=== PATIENT | male | born 1945 | race Caucasian/White ===

== ENCOUNTER 2018-09-22 21:45 | Emergency (ER) | payer MEDICARE, OTHER ==
[~2018-09-22] VITALS: Ht 182.9 cm; Wt 108.9 kg
--- OUTSIDE RECORDS SUMMARY | 2018-09-22 21:50 | XMS REPORT ---
Author Author VISHNU JACOBSON Organization [facility] Address [address] [place] [address] Care Team Providers Care Maintenance Mechanic Telephone Name Role Phone VISHNU JACOBSON Unavailable PROBLEMS Type Condition ICD9-CM Code UPV14-NI Code Onset Dates Condition Status SNOMED Code Problem Benign prostatic hyperplasia, presence of lower urinary tract symptoms unspecified, unspecified morphology N40.0 Active 336055289 Problem HTN (hypertension) I10 Active 42238982 Problem Diabetes mellitus E11.9 Active 65507526 Problem Pure hypercholesterolemia E78.00 Active 104077660 ALLERGIES No Information ENCOUNTERS Encounter Location Date Diagnosis [place] [id number] [address] 4783 Mar, [facility] [address] [place] [id number] [place] [address] 25184- 6427 Jan, [facility] [address] 84141- 3788 Sep, Diabetes mellitus E11.9 [facility] [id number] [place] [address] 67859- 7515 Jul, Diabetes mellitus E11.9 ; HTN (hypertension) I10 ; Pure hypercholesterolemia E78.00 and Benign prostatic hyperplasia, presence of lower urinary tract symptoms unspecified, unspecified morphology N40.0 [facility] [id number] [place] [address] 41261- 5089 Apr, Diabetes mellitus E11.9 ; HTN (hypertension) I10 ; Pure hypercholesterolemia E78.00 and Benign prostatic hyperplasia, presence of lower urinary tract symptoms unspecified, unspecified morphology N40.0 [facility] [id number] [place] [address] 54915- 4481 Apr, Diabetes mellitus E11.9 [facility] [address] [address] 28 Jan, 2017 Medicare welcome exam Z00.00 ; Medicare annual wellness visit, initial Z00.00 ; Medicare annual wellness visit, subsequent Z00.00 ; Diabetes mellitus E11.9 ; HTN (hypertension) I10 and Pure hypercholesterolemia E78.00 [place] [id number] [place] [address] 09464- 5503 Dec, Hyperlipemia E78.5 and Diabetes mellitus E11.9 [place] [address] [id number] [place] [address] 54300- 4691 Nov, Diabetes mellitus E11.9 ; Hypercholesterolemia E78.0 ; Benign prostatic hyperplasia, presence of lower urinary tract symptoms unspecified, unspecified morphology N40.0 and HTN (hypertension) I10 [place] [address] [id number] [place] [address] 37324- 8763 Nov, Hypercholesterolemia E78.0 ; Benign prostatic hyperplasia, presence of lower urinary tract symptoms unspecified, unspecified morphology N40.0 ; HTN (hypertension) I10 and Diabetes mellitus E11.9 [facility] [place] [address] [address] [id number] [place] [address] 02192 -6608 Aug, Body aches R52 and Viral illness B34.9 [place] [address] [place] [address] 13561- 6529 Jul, Diabetes mellitus E11.9 ; Hypercholesterolemia E78.0 ; Benign prostatic hyperplasia, presence of lower urinary tract symptoms unspecified, unspecified morphology N40.0 and HTN (hypertension) I10 [place] [address] [id number] [place] [address] 89077- 5036 Mar, Diabetes mellitus E11.9 ; Hypercholesterolemia E78.0 ; HTN ( hypertension) I10 and Benign prostatic hyperplasia, presence of lower urinary tract symptoms unspecified, unspecified morphology N40.0 [place] [address] [place] [address] 42385- 7482 Jan, [facility] [id number] [place] [address] 32768 -3390 Dec, Sinusitis J32.9 [place] [address] [place] [address] 57449- 2447 14 Dec, 2015 [place] [address] [address] [id number] [place] [address] 54016- 7122 14 Dec, 2015 [place] [address] [address] [id number] [place] [address] 16228- 1074 Dec, Diabetes mellitus E11.9 [place] [address] [address] [id number] [place] [address] 24360- 2074 Oct, [place] [address] [address] [id number] [place] [address] 28900- 3966 Oct, Diabetes mellitus E11.9 ; Hypercholesterolemia E78.0 and HTN (hypertension) I10 [place] [address] [address] [id number] [place] [address] 85565- 0257 Oct, [place] [id number] [place] [address] 04241- 0038 Sep, Hyperlipemia E78.5 [place] [address] [address] [id number] [place] [address] 23973- 3179 Sep, Elevated blood sugar R73.09 and Diabetes mellitus E11.9 [place] [address] [address] 1761 Sep, Physical exam Z00.00 IMMUNIZATIONS No Known Immunizations SOCIAL HISTORY Never Assessed REASON FOR VISIT Medication refill request PLAN OF CARE VITAL SIGNS MEDICATIONS Medication Instructions Dosage Frequency Start Date End Date Duration Status Lisinopril 5 mg Orally Once a day 1 tablet 24h 30 Active Pravastatin Sodium 20 mg Orally Once a day 1 tablet 24h 30 Active Flomax 0.4 MG Orally Once a day 1 tablet 24h 30 Active Pioglitazone HCl 45 MG Orally Once a day 1 tablet 24h Oct, 30 days Active RESULTS No Results PROCEDURES No Known procedures INSTRUCTIONS MEDICATIONS ADMINISTERED No Known Medications MEDICAL (GENERAL) HISTORY Type Description Date Medical History Diabetes type II Medical History hyperlipidemia Medical History htn Surgical History appendectomy Surgical History left knee repair Surgical History left knee replacement Hospitalization History surgeries
--- OUTSIDE RECORDS SUMMARY | 2018-09-22 21:50 | XMS REPORT ---
Author Author NICOLAS WILKINS Organization [facility] Address [address] [place] [address] Care Team Providers Care Consultant In Ergonomics And Safety Name Role Phone NICOLAS WILKINS Unavailable PROBLEMS Type Condition ICD9-CM Code PRB58-HC Code Onset Dates Condition Status SNOMED Code Problem Benign prostatic hyperplasia, presence of lower urinary tract symptoms unspecified, unspecified morphology N40.0 Active 289818923 Problem HTN (hypertension) I10 Active 98185478 Problem Diabetes mellitus E11.9 Active 89549036 Problem Pure hypercholesterolemia E78.00 Active 730545809 ALLERGIES Substance Reaction Event Type Date Status Claire Unknown Drug Allergy Mar, Active ENCOUNTERS Encounter Location Date Diagnosis [place] [address] [place] [id number] [place] [address] 84801- 4202 Mar, Diabetes mellitus E11.9 [place] [address] [place] [id number] [place] [address] 19768- 2131 Jan, [place] [address] [place] [id number] [place] [address] 78914- 8084 Sep, Diabetes mellitus E11.9 [place] [address] [place] [id number] [place] [address] 31549- 2522 Jul, Diabetes mellitus E11.9 ; HTN (hypertension) I10 ; Pure hypercholesterolemia E78.00 and Benign prostatic hyperplasia, presence of lower urinary tract symptoms unspecified, unspecified morphology N40.0 [facility] [address] [id number] [place] [address] 92451- 5655 Apr, Diabetes mellitus E11.9 ; HTN (hypertension) I10 ; Pure hypercholesterolemia E78.00 and Benign prostatic hyperplasia, presence of lower urinary tract symptoms unspecified, unspecified morphology N40.0 [place] [address] [place] [id number] [place] [address] 95032- 2952 Apr, Diabetes mellitus E11.9 [facility] [address] [place] [address] 69881- 8288 Jan, Medicare welcome exam Z00.00 ; Medicare annual wellness visit, initial Z00.00 ; Medicare annual wellness visit, subsequent Z00.00 ; Diabetes mellitus E11.9 ; HTN (hypertension) I10 and Pure hypercholesterolemia E78.00 [place] [address] [place] [id number] [place] [address] 37766- 9133 Dec, Hyperlipemia E78.5 and Diabetes mellitus E11.9 [place] [address] [place] [id number] [place] [address] 35727- 4832 Nov, Diabetes mellitus E11.9 ; Hypercholesterolemia E78.0 ; Benign prostatic hyperplasia, presence of lower urinary tract symptoms unspecified, unspecified morphology N40.0 and HTN (hypertension) I10 [place] [address] [place] [id number] [place] [address] 93681- 5038 Nov, Hypercholesterolemia E78.0 ; Benign prostatic hyperplasia, presence of lower urinary tract symptoms unspecified, unspecified morphology N40.0 ; HTN (hypertension) I10 and Diabetes mellitus E11.9 [facility] [address] [id number] [place] [address] 27344 -6190 Aug, Body aches R52 and Viral illness B34.9 [place] [address] [place] [address] 90137- 0876 Jul, Diabetes mellitus E11.9 ; Hypercholesterolemia E78.0 ; Benign prostatic hyperplasia, presence of lower urinary tract symptoms unspecified, unspecified morphology N40.0 and HTN (hypertension) I10 [place] [address] [place] [id number] [place] [address] 28389- 8731 Mar, Diabetes mellitus E11.9 ; Hypercholesterolemia E78.0 ; HTN ( hypertension) I10 and Benign prostatic hyperplasia, presence of lower urinary tract symptoms unspecified, unspecified morphology N40.0 [facility] [address] [place] [address] 59009- 2357 Jan, [facility] [address], [place] [address] 23 Dec, 2015 Sinusitis J32.9 [facility] [id number] [place] [address] 45518- 5843 14 Dec, 2015 [facility] [address] [id number] [place] [address] 20343- 9792 14 Dec, 2015 [facility] [address] [place] [id number] [place] [address] 63356- 3806 03 Dec, 2015 Diabetes mellitus E11.9 [place] [address] [place] [id number] [place] [address] 21137- 0216 15 Oct, 2015 [place] [address] [place] [address] [id number] [place] [address] 97625- 6197 14 Oct, 2015 Diabetes mellitus E11.9 ; Hypercholesterolemia E78.0 and HTN (hypertension) I10 [place] [address] [place] [id number] [place] [address] 08386- 4913 13 Oct, 2015 [place] [address] [place] [id number] [place] [address] 64835- 8781 15 Sep, 2015 Hyperlipemia E78.5 [place] [address] [place] [address] [place] [address] 54242- 6341 14 Sep, 2015 Elevated blood sugar R73.09 and Diabetes mellitus E11.9 [place] [address] [place] [id number] [place] [address] 15390- 3936 07 Sep, 2015 Physical exam Z00.00 IMMUNIZATIONS No Known Immunizations SOCIAL HISTORY Never Assessed REASON FOR VISIT Diabetes WB-MA PLAN OF CARE Activity Details Pending Test A1C (IN HOUSE) VITAL SIGNS Height 72 in 2018-03-25 Weight 245 lbs 2018-03-25 Temperature 97.9 degrees Fahrenheit 2018-03-25 Heart Rate 82 bpm 2018-03-25 Respiratory Rate 20 2018-03-25 BMI 33.22 kg/m2 2018-03-25 Blood pressure systolic 128 mmHg 2018-03-25 Blood pressure diastolic 72 mmHg 2018-03-25 MEDICATIONS Medication Instructions Dosage Frequency Start Date End Date Duration Status Pravastatin Sodium 20 mg Orally Once a day 1 tablet 24h 30 Active Blood Glucose Monitor System w/Device as directed Sep, Active Lisinopril 5 mg Orally Once a day 1 tablet 24h 30 Active Pioglitazone HCl 45 MG Orally Once a day 1 tablet 24h Oct, 30 days Active Flomax 0.4 MG Orally Once a day 1 tablet 24h 30 Active RESULTS No Results PROCEDURES Procedure Date Ordered Result Body Site GLYCATED HEMOGLOBIN TEST March 25, 2018 MICROALBUMIN, SEMIQUANT March 25, 2018 [facility], 2018 [facility] VISIT ESTABLISHED PATIENT March 25, 2018 ZACHARY MOREJON* March 25, 2018 INSTRUCTIONS MEDICATIONS ADMINISTERED No Known Medications MEDICAL (GENERAL) HISTORY Type Description Date Medical History Diabetes type II Medical History hyperlipidemia Medical History htn Surgical History appendectomy Surgical History left knee repair Surgical History left knee replacement Hospitalization History surgeries
--- OUTSIDE RECORDS SUMMARY | 2018-09-22 21:50 | XMS REPORT ---
Author Author NICOLAS WILKINS Organization [facility] Address [address] [place] [address] Care Team Providers Care Automatic Vulcanizing Operator Name Role Phone NICOLAS WILKINS Unavailable PROBLEMS Type Condition ICD9-CM Code KKY72-ZU Code Onset Dates Condition Status SNOMED Code Problem Benign prostatic hyperplasia, presence of lower urinary tract symptoms unspecified, unspecified morphology N40.0 Active 490010033 Problem HTN (hypertension) I10 Active 92391689 Problem Diabetes mellitus E11.9 Active 18556360 Problem Pure hypercholesterolemia E78.00 Active 481352325 ALLERGIES No Information ENCOUNTERS Encounter Location Date Diagnosis [place] [id number] 15757- 7016 Sep, [facility] [address] 39614- 1758 Sep, Diabetes mellitus E11.9 [place] [address] 50932- 5459 Mar, Diabetes mellitus E11.9 [facility] [address] [place] [id number] [place] [address] 07755- 0401 Jan, [facility] [address] 82858- 7098 Sep, Diabetes mellitus E11.9 [facility] [address] [place] [id number] [place] [address] 14280- 5643 Jul, Diabetes mellitus E11.9 ; HTN (hypertension) I10 ; Pure hypercholesterolemia E78.00 and Benign prostatic hyperplasia, presence of lower urinary tract symptoms unspecified, unspecified morphology N40.0 [facility] [address] [place] [id number] [place] [address] 29967- 3064 Apr, Diabetes mellitus E11.9 ; HTN (hypertension) I10 ; Pure hypercholesterolemia E78.00 and Benign prostatic hyperplasia, presence of lower urinary tract symptoms unspecified, unspecified morphology N40.0 [facility] [address] [place] [address] 97677- 9905 Apr, Diabetes mellitus E11.9 [facility] [address] [place] [id number] [place] [address] 38181- 1593 Jan, Medicare welcome exam Z00.00 ; Medicare annual wellness visit, initial Z00.00 ; Medicare annual wellness visit, subsequent Z00.00 ; Diabetes mellitus E11.9 ; HTN (hypertension) I10 and Pure hypercholesterolemia E78.00 [place] [address] [place] [id number] [place] [address] 30092- 3199 Dec, Hyperlipemia E78.5 and Diabetes mellitus E11.9 [place] [address] [place] [id number] [place] [address] 59693- 0540 Nov, Diabetes mellitus E11.9 ; Hypercholesterolemia E78.0 ; Benign prostatic hyperplasia, presence of lower urinary tract symptoms unspecified, unspecified morphology N40.0 and HTN (hypertension) I10 [place] [address] [place] [id number] [place] [address] 38087- 4047 Nov, Hypercholesterolemia E78.0 ; Benign prostatic hyperplasia, presence of lower urinary tract symptoms unspecified, unspecified morphology N40.0 ; HTN (hypertension) I10 and Diabetes mellitus E11.9 [facility] IN [facility] [address] [place] [address] 69675 -0481 Aug, Body aches R52 and Viral illness B34.9 [facility] [address] [place] [address] 50241- 6611 Jul, Diabetes mellitus E11.9 ; Hypercholesterolemia E78.0 ; Benign prostatic hyperplasia, presence of lower urinary tract symptoms unspecified, unspecified morphology N40.0 and HTN (hypertension) I10 [facility] [address] [place] [address] 09264- 6847 Mar, Diabetes mellitus E11.9 ; Hypercholesterolemia E78.0 ; HTN ( hypertension) I10 and Benign prostatic hyperplasia, presence of lower urinary tract symptoms unspecified, unspecified morphology N40.0 [facility] [address], [place] [address]- 7475 Jan, [facility] [address], [place] [address] Dec, Sinusitis J32.9 [facility] [address] [place] [id number] [place] [address] 68603- 8317 Dec, [facility] [address] [place] [id number] [place] [address] 56985- 6719 Dec, [place] [address] [place] [id number] [place] [address] 92548- 0226 Dec, Diabetes mellitus E11.9 [place] [address] [place] [id number] [place] [address] 81374- 0907 Oct, [facility] [address] [place] [id number] [place] [address] 52060- 7879 Oct, Diabetes mellitus E11.9 ; Hypercholesterolemia E78.0 and HTN (hypertension) I10 [place] [address] [place] [address] 79411- 8750 Oct, [place] [address] [place] [address] 54791- 4780 Sep, Hyperlipemia E78.5 [place] [address] [place] [id number] [place] [address] 84129- 6181 Sep, Elevated blood sugar R73.09 and Diabetes mellitus E11.9 [place] [address], [place] [address]- 5789 Sep, Physical exam Z00.00 IMMUNIZATIONS No Known Immunizations SOCIAL HISTORY Never Assessed REASON FOR VISIT Medication refill request PLAN OF CARE VITAL SIGNS MEDICATIONS Medication Instructions Dosage Frequency Start Date End Date Duration Status Pravastatin Sodium 20 MG Orally Once a day 1 tablet 24h 30 days Active Lisinopril 5 MG Orally Once a day 1 tablet 24h 30 days Active Pioglitazone HCl 45 MG Orally Once a day 1 tablet 24h Oct, 30 days Active Flomax 0.4 MG Orally Once a day 1 tablet 24h 30 days Active RESULTS No Results PROCEDURES No Known procedures INSTRUCTIONS MEDICATIONS ADMINISTERED No Known Medications MEDICAL (GENERAL) HISTORY Type Description Date Medical History Diabetes type II Medical History hyperlipidemia Medical History htn Surgical History appendectomy Surgical History left knee repair Surgical History left knee replacement Hospitalization History surgeries
--- OUTSIDE RECORDS SUMMARY | 2018-09-22 21:50 | XMS REPORT ---
Author Author EDY CAI Organization [facility] [place] Address [address] [place] [address] Phone Unavailable Care Team Providers Care Professor Of Chemistry Name Role Phone EDY CAI Unavailable Unavailable PROBLEMS Type Condition ICD9-CM Code DVJ84-XR Code Onset Dates Condition Status SNOMED Code Problem Benign prostatic hyperplasia, presence of lower urinary tract symptoms unspecified, unspecified morphology N40.0 Active 112191864 Problem HTN (hypertension) I10 Active 02609228 Problem Diabetes mellitus E11.9 Active 19145611 Problem Pure hypercholesterolemia E78.00 Active 145740957 ALLERGIES No Information ENCOUNTERS Encounter Location Date Diagnosis [facility] [place] [address] 42177- 7766 Mar, Diabetes mellitus E11.9 [facility] [place] [address] [place] [id number] [place] [address] 72612- 4964 Jan, [facility] [place] [address] 34302- 7451 Sep, Diabetes mellitus E11.9 [facility] [place] [address] [place] [id number] [place] [address] 60311- 0290 Jul, Diabetes mellitus E11.9 ; HTN (hypertension) I10 ; Pure hypercholesterolemia E78.00 and Benign prostatic hyperplasia, presence of lower urinary tract symptoms unspecified, unspecified morphology N40.0 [facility] [place] [address] [place] [id number] [place] [address] 18556- 6189 Apr, Diabetes mellitus E11.9 ; HTN (hypertension) I10 ; Pure hypercholesterolemia E78.00 and Benign prostatic hyperplasia, presence of lower urinary tract symptoms unspecified, unspecified morphology N40.0 [facility] [place] [address] [place] [id number] [place] [address] 95014- 2206 Apr, Diabetes mellitus E11.9 [facility] [place] [address], [place] [address]- 0671 28 Jan, 2017 Medicare welcome exam Z00.00 ; Medicare annual wellness visit, initial Z00.00 ; Medicare annual wellness visit, subsequent Z00.00 ; Diabetes mellitus E11.9 ; HTN (hypertension) I10 and Pure hypercholesterolemia E78.00 [place] [address] [place] [address] [id number] [place] [address] 87884- 5706 Dec, Hyperlipemia E78.5 and Diabetes mellitus E11.9 [place] [address] [id number] [place] [address] 59707- 0630 Nov, Diabetes mellitus E11.9 ; Hypercholesterolemia E78.0 ; Benign prostatic hyperplasia, presence of lower urinary tract symptoms unspecified, unspecified morphology N40.0 and HTN (hypertension) I10 [place] [address] [place] [id number] [place] [address] 91524- 2877 Nov, Hypercholesterolemia E78.0 ; Benign prostatic hyperplasia, presence of lower urinary tract symptoms unspecified, unspecified morphology N40.0 ; HTN (hypertension) I10 and Diabetes mellitus E11.9 [facility] [place] [address] [place] [id number] [place] [address] 46100 -6007 Aug, Body aches R52 and Viral illness B34.9 [place] [address] [place] [address] 90932- 5830 Jul, Diabetes mellitus E11.9 ; Hypercholesterolemia E78.0 ; Benign prostatic hyperplasia, presence of lower urinary tract symptoms unspecified, unspecified morphology N40.0 and HTN (hypertension) I10 [place] [address] [place] [id number] [place] [address] 61956- 7753 Mar, Diabetes mellitus E11.9 ; Hypercholesterolemia E78.0 ; HTN ( hypertension) I10 and Benign prostatic hyperplasia, presence of lower urinary tract symptoms unspecified, unspecified morphology N40.0 [place] [address] [place] [address] 18440- 4537 Jan, [facility] [address] [id number] [place] [address] 92766 -0225 23 Dec, 2015 Sinusitis J32.9 [facility] [place] [address] [place] [address] 53792- 2570 14 Dec, 2015 [facility] [place] [address] [place] [id number] [place] [address] 03016- 3349 14 Dec, 2015 [facility] [place] [address] [place] [id number] [place] [address] 68461- 9720 03 Dec, 2015 Diabetes mellitus E11.9 [place] [address] [address] [id number] [place] [address] 82556- 6794 Oct, [place] [address] [address] [id number] [place] [address] 78328- 5340 Oct, Diabetes mellitus E11.9 ; Hypercholesterolemia E78.0 and HTN (hypertension) I10 [place] [address] [id number] [place] [address] 37210- 5344 Oct, [place] [address] [place] [id number] [place] [address] 88819- 9153 Sep, Hyperlipemia E78.5 [place] [address] [place] [id number] [place] [address] 78634- 5091 Sep, Elevated blood sugar R73.09 and Diabetes mellitus E11.9 [place] [address], [place] [address]- 9524 07 Sep, 2015 Physical exam Z00.00 IMMUNIZATIONS No Known Immunizations SOCIAL HISTORY Never Assessed REASON FOR VISIT Requests return call PLAN OF CARE VITAL SIGNS MEDICATIONS Unknown Medications RESULTS No Results PROCEDURES No Known procedures INSTRUCTIONS MEDICATIONS ADMINISTERED No Known Medications MEDICAL (GENERAL) HISTORY Type Description Date Medical History Diabetes type II Medical History hyperlipidemia Medical History htn Surgical History appendectomy Surgical History left knee repair Surgical History left knee replacement Hospitalization History surgeries
--- OUTSIDE RECORDS SUMMARY | 2018-09-22 21:50 | XMS REPORT ---
Author Author PETER GONSALVES Organization [facility] Address [address] [place] [address] Care Team Providers Care Office Secretary Name Role Phone PETER GONSALVES Unavailable PROBLEMS Type Condition ICD9-CM Code [id number] Code Onset Dates Condition Status SNOMED Code Problem Benign prostatic hyperplasia, presence of lower urinary tract symptoms unspecified, unspecified morphology N40.0 Active 604125656 Problem HTN (hypertension) I10 Active 73462904 Problem Diabetes mellitus E11.9 Active 80238295 Problem Pure hypercholesterolemia E78.00 Active 922867850 ALLERGIES No Information SOCIAL HISTORY Never Assessed PLAN OF CARE VITAL SIGNS MEDICATIONS No Known Medications RESULTS Name Result Date Reference Range CBC 2016-12-18 WBC 7.3 3.4-10.8 RBC 5.04 4.14-5.80 Hemoglobin 15.3 12.6-17.7 Hematocrit 46.2 37.5-51.0 MCV 92 79-97 MCH 30.4 26.6-33.0 MCHC 33.1 31.5-35.7 RDW 14.0 12.3-15.4 Platelets 237 150-379 Neutrophils 42 Lymphs 44 Monocytes 10 Eos 4 Basos 0 Neutrophils (Absolute) 3.0 1.4-7.0 Lymphs (Absolute) 3.2 0.7-3.1 Monocytes(Absolute) 0.8 0.1-0.9 Eos (Absolute) 0.3 0.0-0.4 Baso (Absolute) 0.0 0.0-0.2 Immature Granulocytes 0 Immature Grans (Abs) 0.0 0.0-0.1 LIPID PANEL 2016-12-18 Cholesterol, Total 188 100-199 Triglycerides 149 0-149 HDL Cholesterol 40 >39 VLDL Cholesterol Pranav 30 5-40 LDL Cholesterol Calc 118 0-99 Comment: CMP 2016-12-18 Glucose, Serum 117 65-99 BUN 13 8-27 Creatinine, Serum 0.70 0.76-1.27 eGFR If NonAfricn Am 94 >59 eGFR If Africn Am 108 >59 BUN/Creatinine Ratio 19 10-22 Sodium, Serum 138 134-144 Potassium, Serum 4.3 3.5-5.2 Chloride, Serum 98 96-106 Carbon Dioxide, Total 25 18-29 Calcium, Serum 9.2 8.6-10.2 Protein, Total, Serum 7.3 6.0-8.5 Albumin, Serum 4.2 3.5-4.8 Globulin, Total 3.1 1.5-4.5 A/G Ratio 1.4 1.1-2.5 Bilirubin, Total 0.6 0.0-1.2 Alkaline Phosphatase, S 69 39-117 AST (SGOT) 15 0-40 ALT (SGPT) 14 0-44 PROCEDURES Procedure Date Ordered Result Body Site LAB NOT BILLED BY [facility] December 18, 2016 VENIPUNCT, ROUTINE* December 18, 2016 IMMUNIZATIONS No Known Immunizations MEDICAL (GENERAL) HISTORY Type Description Date Medical History Diabetes type II Medical History hyperlipidemia Medical History htn Surgical History appendectomy Surgical History left knee repair Surgical History left knee replacement Hospitalization History surgeries
--- OUTSIDE RECORDS SUMMARY | 2018-09-22 21:50 | XMS REPORT ---
Author Author PETER GONSALVES Organization [facility] Address [address] [place] [address] Care Team Providers Care Nurse Licensed Practical Name Role Phone PETER GONSALVES Unavailable PROBLEMS Type Condition ICD9-CM Code [id number] Code Onset Dates Condition Status SNOMED Code Problem Benign prostatic hyperplasia, presence of lower urinary tract symptoms unspecified, unspecified morphology N40.0 Active 376132889 Problem HTN (hypertension) I10 Active 57599744 Problem Diabetes mellitus E11.9 Active 53257966 Problem Pure hypercholesterolemia E78.00 Active 463611117 ALLERGIES Substance Reaction Event Type Date Status Claire Unknown Drug Allergy Nov, Active SOCIAL HISTORY Never Assessed PLAN OF CARE Activity Details Follow Up 3 Months Reason:dm VITAL SIGNS Height 72 in 2016-12-09 Weight 240 lbs 2016-12-09 Temperature 98.0 degrees Fahrenheit 2016-12-09 Heart Rate 78 bpm 2016-12-09 Respiratory Rate 20 2016-12-09 BMI 32.55 kg/m2 2016-12-09 Blood pressure systolic 130 mmHg 2016-12-09 Blood pressure diastolic 80 mmHg 2016-12-09 MEDICATIONS Medication Instructions Dosage Frequency Start Date End Date Duration Status Pioglitazone HCl 45 MG Orally Once a day 1 tablet 24h Oct, 30 days Active Pravastatin Sodium 20 mg Orally Once a day 1 tablet 24h Sep, 30 Active Blood Glucose Monitor System w/Device as directed Sep, Active Lisinopril 5 mg Orally Once a day 1 tablet 24h Oct, 30 Active Flomax 0.4 MG Orally Once a day 1 tablet 24h 30 Active RESULTS Name Result Date Reference Range MICROALBUMIN, URINE (IN HOUSE) 2016-12-09 MICROALBUMIN Normal Lot # [id number] Exp date 11/2017 Clarity clear Color yellow ALB 30mg/l CRE 200mg/dl A:C (IN HOUSE) <30mg/g Control Control Lot # Exp date A1C (IN HOUSE) 2016-12-09 A1C IN HOUSE 6.6 4.3 - 5.6 % Previous A1c 6.8 Lot [id number] Exp date 08/2018 PROCEDURES Procedure Date Ordered Result Body Site GLYCATED HEMOGLOBIN TEST Dec 09, 2016 MICROALBUMIN, SEMIQUANT Dec 09, 2016 [facility] VISIT ESTABLISHED PATIENT Dec 09, 2016 IMMUNIZATIONS No Known Immunizations MEDICAL (GENERAL) HISTORY Type Description Date Medical History Diabetes type II Medical History hyperlipidemia Medical History htn Surgical History appendectomy Surgical History left knee repair Surgical History left knee replacement Hospitalization History surgeries
--- OUTSIDE RECORDS SUMMARY | 2018-09-22 21:51 | XMS REPORT ---
Author Author PETER GONSALVES [facility] eClinicalWorks Address Unknown Phone Unavailable Care Team Providers Care Vector Control Assistant Name Role Phone PETER GONSALVES CP Unavailable Allergies, Adverse Reactions, Alerts Substance Reaction Event Type N.K.D.A. Info Not Available Non Drug Allergy Problems Problem Type Condition Code Onset Dates Condition Status Assessment Elevated blood sugar R73.09 Active Assessment Diabetes mellitus E11.9 Active Problem Diabetes mellitus E11.9 Active Medications Medication Code System Code Instructions Start Date End Date Status Dosage Actos [facility] [address]-04 30 MG Orally Once a day Sep 30, 2015 1 tablet Blood Glucose Monitor System [facility] [address] w/Device dispense per insurance. Pt to test once a day. DX: E11.9 Sep 30, 2015 as directed Procedures Procedure Coding System Code Date [facility] NOBLL Sep 30, 2015 [facility] VISIT ESTABLISHED PATIENT CPT-4 G0467 Sep 30, 2015 GLYCATED HEMOGLOBIN TEST CPT-4 21728 Sep 30, 2015 VENIPUNCT, ROUTINE* CPT-4 71682 Sep 30, 2015 Office Visit, Est Pt., Level 4 CPT-4 06658 Sep 30, 2015 Vital Signs Date/Time: Sep 30, 2015 Temperature 97.6 F Weight 252.4 lbs Height 72 in BMI 34.23 Index Blood Pressure Diastolic 88 mmHg Blood Pressure Systolic 150 mmHg Cardiac Monitoring Heart Rate 88 bpm Results Name Result Date Reference Range Unit Abnormality Flag CBC ----Lymphs 47 61766890 % ----Neutrophils 33 53822493 % ----Baso (Absolute) 0.1 93621109 0.0-0.2 x10E3/uL ----Hemoglobin 16.9 20150930 12.6-17.7 g/dL ----Eos (Absolute) 0.7 92681945 0.0-0.4 x10E3/uL H ----Hematocrit 50.3 20150930 37.5-51.0 % ----Monocytes(Absolute) 0.8 81693275 0.1-0.9 x10E3/uL ----MCV 94 01106117 79-97 fL ----Lymphs (Absolute) 3.6 37221015 0.7-3.1 x10E3/uL H ----MCH 31.6 77775498 26.6-33.0 pg ----Neutrophils (Absolute) 2.5 15329378 1.4-7.0 x10E3/uL ----MCHC 33.6 40378677 31.5-35.7 g/dL ----Immature Granulocytes 0 56141912 % ----Basos 1 69564016 % ----RDW 13.8 89265675 12.3-15.4 % ----Immature Grans (Abs) 0.0 21943215 0.0-0.1 x10E3/uL ----WBC 7.5 45975690 3.4-10.8 x10E3/uL ----Platelets 319 58423559 150-379 x10E3/uL ----Eos 9 62296921 % ----RBC 5.35 62076330 4.14-5.80 x10E6/uL ----Monocytes 10 84641944 % LIPID PANEL ----LDL Cholesterol Calc 147 07398170 0-99 mg/dL H ----VLDL Cholesterol Pranav 74 45754861 5-40 mg/dL H ----Cholesterol, Total 254 14601242 100-199 mg/dL H ----HDL Cholesterol 33 95533877 >39 mg/dL L ----Triglycerides 371 01363146 0-149 mg/dL H A1C (IN HOUSE) ----A1C IN HOUSE 9.3 61549033 4.30 - 5.6 % ----Previous A1c n/a 20150930 ----Lot # [id number] ----Exp date [id number] ROUTINE VENIPUNCTURE CMP ----Potassium, Serum 4.4 20150930 3.5-5.2 mmol/L ----Sodium, Serum 136 20150930 134-144 mmol/L ----BUN/Creatinine Ratio 13 20150930 10-22 ----eGFR If Africn Am 115 20150930 >59 mL/min/1.73 ----eGFR If NonAfricn Am 100 11041179 >59 mL/min/1.73 ----Creatinine, Serum 0.61 20150930 0.76-1.27 mg/dL L ----BUN 8 20150930 8-27 mg/dL ----Glucose, Serum 224 20150930 65-99 mg/dL H ----AST (SGOT) 29 20150930 0-40 IU/L ----Globulin, Total 3.2 22094907 1.5-4.5 g/dL ----ALT (SGPT) 31 20150930 0-44 IU/L ----A/G Ratio 1.3 20150930 1.1-2.5 ----Bilirubin, Total 0.6 20150930 0.0-1.2 mg/dL ----Alkaline Phosphatase, S 83 20150930 39-117 IU/L ----Carbon Dioxide, Total 24 20150930 18-29 mmol/L ----Calcium, Serum 9.2 64501319 8.6-10.2 mg/dL ----Protein, Total, Serum 7.4 70283970 6.0-8.5 g/dL ----Albumin, Serum 4.2 07706694 3.5-4.8 g/dL ----Chloride, Serum 98 20150930 97-108 mmol/L Summary Purpose eClinicalWorks Submission
--- OUTSIDE RECORDS SUMMARY | 2018-09-22 21:51 | XMS REPORT ---
Author PETER [facility] eClinicalWorks Address Unknown Phone Unavailable Care Team Providers Care Blow Torch Burner Name Role Phone PETER GONSALVES CP Unavailable Allergies, Adverse Reactions, Alerts Substance Reaction Event Type Claire Info Not Available Drug Allergy Problems Problem Type Condition Code Onset Dates Condition Status Assessment HTN (hypertension) I10 Active Problem Hypercholesterolemia E78.0 Active Problem HTN (hypertension) I10 Active Problem Benign prostatic hyperplasia, presence of lower urinary tract symptoms unspecified, unspecified morphology N40.0 Active Assessment Hypercholesterolemia E78.0 Active Assessment Benign prostatic hyperplasia, presence of lower urinary tract symptoms unspecified, unspecified morphology N40.0 Active Problem Diabetes mellitus E11.9 Active Assessment Diabetes mellitus E11.9 Active Medications Medication Code System Code Instructions Start Date End Date Status Dosage Blood Glucose Monitor System [facility] [address] w/Device dispense per insurance. Pt to test once a day. DX: E11.9 Sep 30, 2015 as directed Lisinopril [facility] [address]-55 5 mg Orally Once a day Oct 31, 2015 1 tablet Pravastatin Sodium [facility] [address]-15 20 mg Orally Once a day Oct 01, 2015 1 tablet Pioglitazone HCl [facility] [address]-80 45 MG Orally Once a day Oct 31, 2015 1 tablet Flomax [facility] 79345600585 0.4 MG Orally Once a day 1 tablet Procedures Procedure Coding System Code Date Office Visit, Est Pt., Level 4 CPT-4 28501 Aug 13, 2016 [facility] VISIT ESTABLISHED PATIENT CPT-4 G0467 Aug 13, 2016 Vital Signs Date/Time: Aug 13, 2016 Cardiac Monitoring Heart Rate 80 bpm Weight 238.6 lbs Height 72 in BMI 32.36 Index Blood Pressure Diastolic 80 mmHg Blood Pressure Systolic 106 mmHg Results No Known Results Summary Purpose eClinicalWorks Submission
--- OUTSIDE RECORDS SUMMARY | 2018-09-22 21:51 | XMS REPORT ---
Author Author PETER GONSALVES Organization [facility] Address [address] [place] [address] Care Team Providers Care Electrician Station Assistant Name Role Phone PETER GONSALVES Unavailable PROBLEMS Type Condition ICD9-CM Code [id number] Code Onset Dates Condition Status SNOMED Code Problem Benign prostatic hyperplasia, presence of lower urinary tract symptoms unspecified, unspecified morphology N40.0 Active 902172964 Problem HTN (hypertension) I10 Active 01519781 Problem Diabetes mellitus E11.9 Active 80842558 Problem Pure hypercholesterolemia E78.00 Active 849250619 ALLERGIES No Known Allergies SOCIAL HISTORY No smoking Hx information available PLAN OF CARE VITAL SIGNS MEDICATIONS Medication Instructions Dosage Frequency Start Date End Date Duration Status Pravastatin Sodium 20 mg Orally Once a day 1 tablet 24h Sep, 30 Active Flomax 0.4 MG Orally Once a day 1 tablet 24h 30 Active Lisinopril 5 mg Orally Once a day 1 tablet 24h Oct, 30 Active Pioglitazone HCl 45 MG Orally Once a day 1 tablet 24h Oct, 30 days Active RESULTS No Results PROCEDURES No Known procedures IMMUNIZATIONS No Known Immunizations
--- OUTSIDE RECORDS SUMMARY | 2018-09-22 21:51 | XMS REPORT ---
Author PETER [facility] eClinicalWorks Address Unknown Phone Unavailable Care Team Providers Care Administrative Asst Name Role Phone PETER GONSALVES Unavailable Allergies No Known Allergies Problems Problem Type Condition Code Onset Dates Condition Status Problem HTN (hypertension) I10 Active Problem Diabetes mellitus E11.9 Active Problem Hypercholesterolemia E78.0 Active Medications Medication Code System Code Instructions Start Date End Date Status Dosage Pioglitazone HCl [facility] [address]-25 45 MG Orally Once a day Oct 31, 2015 1 tablet Lisinopril [facility] [address]-89 5 MG Orally Once a day Oct 31, 2015 1 tablet Results No Known Results Summary Purpose eClinicalWorks Submission
--- OUTSIDE RECORDS SUMMARY | 2018-09-22 21:51 | XMS REPORT ---
Author Author [place] PETER Organization [facility] Address [address] [place] [address] Care Team Providers Care Model Home Sales Greeter Name Role Phone luceroAndieALEJANDRASONAPETER Unavailable PROBLEMS Type Condition ICD9-CM Code [id number] Code Onset Dates Condition Status SNOMED Code Problem Benign prostatic hyperplasia, presence of lower urinary tract symptoms unspecified, unspecified morphology N40.0 Active 269161375 Problem HTN (hypertension) I10 Active 95091040 Problem Diabetes mellitus E11.9 Active 75519969 Problem Pure hypercholesterolemia E78.00 Active 132909336 ALLERGIES Substance Reaction Event Type Date Status Claire Unknown Drug Allergy Apr, Active ENCOUNTERS Encounter Location Date Diagnosis [place] [id number] [address] Sep, Diabetes mellitus E11.9 [place] [address] [address] Jul, Diabetes mellitus E11.9 ; HTN (hypertension) I10 ; Pure hypercholesterolemia E78.00 and Benign prostatic hyperplasia, presence of lower urinary tract symptoms unspecified, unspecified morphology N40.0 [facility] [address] [place] [id number] [place] [address] Apr, Diabetes mellitus E11.9 ; HTN (hypertension) I10 ; Pure hypercholesterolemia E78.00 and Benign prostatic hyperplasia, presence of lower urinary tract symptoms unspecified, unspecified morphology N40.0 [facility] [address] [address] Apr, Diabetes mellitus E11.9 [facility] [address] [place] [id number] [place] [address] Jan, Medicare welcome exam Z00.00 ; Medicare annual wellness visit, initial Z00.00 ; Medicare annual wellness visit, subsequent Z00.00 ; Diabetes mellitus E11.9 ; HTN (hypertension) I10 and Pure hypercholesterolemia E78.00 [place] [address] [address] Dec, Hyperlipemia E78.5 and Diabetes mellitus E11.9 [place] [address] [address] Nov, Diabetes mellitus E11.9 ; Hypercholesterolemia E78.0 ; Benign prostatic hyperplasia, presence of lower urinary tract symptoms unspecified, unspecified morphology N40.0 and HTN (hypertension) I10 [place] [address] [address] Nov, Hypercholesterolemia E78.0 ; Benign prostatic hyperplasia, presence of lower urinary tract symptoms unspecified, unspecified morphology N40.0 ; HTN (hypertension) I10 and Diabetes mellitus E11.9 [facility] [place] [address] [address] Aug, Body aches R52 and Viral illness B34.9 [place] [address] [address] Jul, Diabetes mellitus E11.9 ; Hypercholesterolemia E78.0 ; Benign prostatic hyperplasia, presence of lower urinary tract symptoms unspecified, unspecified morphology N40.0 and HTN (hypertension) I10 [place] [address] [address] Mar, Diabetes mellitus E11.9 ; Hypercholesterolemia E78.0 ; HTN ( hypertension) I10 and Benign prostatic hyperplasia, presence of lower urinary tract symptoms unspecified, unspecified morphology N40.0 [place] [address] [address] Jan, [facility] [address] [place] [id number] [place] [address] Dec, Sinusitis J32.9 [place] [address] [address] 14 Dec, 2015 [place] [address] [address] 14 Dec, 2015 [place] [address] [place] [address] 03 Dec, 2015 Diabetes mellitus E11.9 [place] [address] [place] [id number] [place] [address] 15 Oct, 2015 [place] [address] [place] [id number] [place] [address] Oct, Diabetes mellitus E11.9 ; Hypercholesterolemia E78.0 and HTN (hypertension) I10 [place] [address] [place] [id number] [place] [address] Oct, [place] [address] [place] [id number] [place] [address] Sep, Hyperlipemia E78.5 [place] [address] [place] [id number] [place] [address] Sep, Elevated blood sugar R73.09 and Diabetes mellitus E11.9 [address] [place] [address] Sep, Physical exam Z00.00 IMMUNIZATIONS No Known Immunizations SOCIAL HISTORY Never Assessed REASON FOR VISIT DM FU. No concerns. Medication refills needed. ALYSSA Leiva PLAN OF CARE Activity Details Follow Up 3 Months Reason:htn dm VITAL SIGNS Height 72 in 2017-05-17 Weight 241 lbs 2017-05-17 Temperature 98.7 degrees Fahrenheit 2017-05-17 Heart Rate 88 bpm 2017-05-17 Respiratory Rate 18 2017-05-17 BMI 32.68 kg/m2 2017-05-17 Blood pressure systolic 110 mmHg 2017-05-17 Blood pressure diastolic 70 mmHg 2017-05-17 MEDICATIONS Medication Instructions Dosage Frequency Start Date End Date Duration Status Lisinopril 5 mg Orally Once a day 1 tablet 24h 30 Active Blood Glucose Monitor System w/Device as directed Sep, Active Pioglitazone HCl 45 MG Orally Once a day 1 tablet 24h Oct, 30 days Active Flomax 0.4 MG Orally Once a day 1 tablet 24h 30 Active Pravastatin Sodium 20 mg Orally Once a day 1 tablet 24h 30 Active RESULTS Name Result Date Reference Range A1C (IN HOUSE) 2017-05-17 A1C IN HOUSE Previous A1c 6.6 Lot [id number] Exp date 01/2019 PROCEDURES Procedure Date Ordered Result Body Site GLYCATED HEMOGLOBIN TEST May 17, 2017 [facility] VISIT ESTABLISHED PATIENT May 17, 2017 INSTRUCTIONS MEDICATIONS ADMINISTERED No Known Medications MEDICAL (GENERAL) HISTORY Type Description Date Medical History Diabetes type II Medical History hyperlipidemia Medical History htn Surgical History appendectomy Surgical History left knee repair Surgical History left knee replacement Hospitalization History surgeries
--- OUTSIDE RECORDS SUMMARY | 2018-09-22 21:51 | XMS REPORT ---
Author Author NICOLAS WILKINS Organization [facility] Address [address] [place] [address] Care Team Providers Care Hotel Registration Clerk Name Role Phone NICOLAS WILKINS Unavailable PROBLEMS Type Condition ICD9-CM Code SQF59-GI Code Onset Dates Condition Status SNOMED Code Problem Benign prostatic hyperplasia, presence of lower urinary tract symptoms unspecified, unspecified morphology N40.0 Active 998070871 Problem HTN (hypertension) I10 Active 20432662 Problem Diabetes mellitus E11.9 Active 80783159 Problem Pure hypercholesterolemia E78.00 Active 572373833 ALLERGIES Substance Reaction Event Type Date Status Claire Unknown Drug Allergy Sep, Active ENCOUNTERS Encounter Location Date Diagnosis [facility] [id number] [place] [address]56- 4003 Mar, [facility] [address] [address] Jan, [facility] [address] [address] Sep, Diabetes mellitus E11.9 [facility] [address] [address] Jul, Diabetes mellitus E11.9 ; HTN (hypertension) I10 ; Pure hypercholesterolemia E78.00 and Benign prostatic hyperplasia, presence of lower urinary tract symptoms unspecified, unspecified morphology N40.0 [facility] [id number] [place] [address] 75298- 0584 Apr, Diabetes mellitus E11.9 ; HTN (hypertension) I10 ; Pure hypercholesterolemia E78.00 and Benign prostatic hyperplasia, presence of lower urinary tract symptoms unspecified, unspecified morphology N40.0 [facility] [id number] [place] [address] 13418- 9467 Apr, Diabetes mellitus E11.9 [facility] [address] [place] [address] 24957- 5424 Jan, Medicare welcome exam Z00.00 ; Medicare annual wellness visit, initial Z00.00 ; Medicare annual wellness visit, subsequent Z00.00 ; Diabetes mellitus E11.9 ; HTN (hypertension) I10 and Pure hypercholesterolemia E78.00 [place] [id number] [place] [address] 20206- 3258 Dec, Hyperlipemia E78.5 and Diabetes mellitus E11.9 [place] [id number] [place] [address] 37152- 4617 Nov, Diabetes mellitus E11.9 ; Hypercholesterolemia E78.0 ; Benign prostatic hyperplasia, presence of lower urinary tract symptoms unspecified, unspecified morphology N40.0 and HTN (hypertension) I10 [place] [id number] [place] [address] 33877- 3556 Nov, Hypercholesterolemia E78.0 ; Benign prostatic hyperplasia, presence of lower urinary tract symptoms unspecified, unspecified morphology N40.0 ; HTN (hypertension) I10 and Diabetes mellitus E11.9 [facility] [place] [id number] [place] [address]5257 Aug, Body aches R52 and Viral illness B34.9 [place] [id number] [place] [address] 02717- 9475 Jul, Diabetes mellitus E11.9 ; Hypercholesterolemia E78.0 ; Benign prostatic hyperplasia, presence of lower urinary tract symptoms unspecified, unspecified morphology N40.0 and HTN (hypertension) I10 [place] [id number] [place] [address] 15367- 9484 Mar, Diabetes mellitus E11.9 ; Hypercholesterolemia E78.0 ; HTN ( hypertension) I10 and Benign prostatic hyperplasia, presence of lower urinary tract symptoms unspecified, unspecified morphology N40.0 [place] [id number] [place] [address] 19998- 6356 05 Jan, 2016 [facility] [address] [place] [address] 23 Dec, 2015 Sinusitis J32.9 [facility] [id number] [place] [address] 61271- 3314 14 Dec, 2015 [facility] [id number] [place] [address] 34652- 5360 14 Dec, 2015 [place] [id number] [place] [address] 24655- 7865 03 Dec, 2015 Diabetes mellitus E11.9 [place] [id number] [place] [address] 09515- 7338 15 Oct, 2015 [place] [id number] [place] [address] 28597- 0331 Oct, Diabetes mellitus E11.9 ; Hypercholesterolemia E78.0 and HTN (hypertension) I10 [place] [id number] [place] [address] 55741- 5956 Oct, [place] [id number] [place] [address] 93529- 5894 Sep, Hyperlipemia E78.5 [place] [id number] [place] [address] 44246- 9635 14 Sep, 2015 Elevated blood sugar R73.09 and Diabetes mellitus E11.9 [place] [address] [place] [address] 05655- 2889 07 Sep, 2015 Physical exam Z00.00 IMMUNIZATIONS No Known Immunizations SOCIAL HISTORY Never Assessed REASON FOR VISIT Transition of Care, needs refills--Nayely Sesay MA PLAN OF CARE VITAL SIGNS Height 72 in 2017-09-24 Weight 238.6 lbs 2017-09-24 Temperature 97.8 degrees Fahrenheit 2017-09-24 Heart Rate 76 bpm 2017-09-24 Respiratory Rate 22 2017-09-24 BMI 32.36 kg/m2 2017-09-24 Blood pressure systolic 124 mmHg 2017-09-24 Blood pressure diastolic 82 mmHg 2017-09-24 MEDICATIONS Medication Instructions Dosage Frequency Start Date End Date Duration Status Pravastatin Sodium 20 mg Orally Once a day 1 tablet 24h 30 Active Pioglitazone HCl 45 MG Orally Once a day 1 tablet 24h Oct, 30 days Active Blood Glucose Monitor System w/Device as directed Sep, Active Lisinopril 5 mg Orally Once a day 1 tablet 24h 30 Active Flomax 0.4 MG Orally Once a day 1 tablet 24h 30 Active RESULTS Name Result Date Reference Range A1C (IN HOUSE) 2017-09-24 A1C IN HOUSE 6.7 4.3 - 5.6 % Previous A1c 6.6 Lot [id number] Exp date 05/2019 PROCEDURES Procedure Date Ordered Result Body Site GLYCATED HEMOGLOBIN TEST Sep 24, 2017 [facility] VISIT ESTABLISHED PATIENT Sep 24, 2017 INSTRUCTIONS MEDICATIONS ADMINISTERED No Known Medications MEDICAL (GENERAL) HISTORY Type Description Date Medical History Diabetes type II Medical History hyperlipidemia Medical History htn Surgical History appendectomy Surgical History left knee repair Surgical History left knee replacement Hospitalization History surgeries
--- OUTSIDE RECORDS SUMMARY | 2018-09-22 21:51 | XMS REPORT ---
Author Author OSCAR NESBITT Organization [employer] Address Unknown Phone Unavailable Care Team Providers Care Gas Plant Worker Name Role Phone OSCAR NESBITT CP Unavailable Allergies, Adverse Reactions, Alerts Substance Reaction Event Type Claire Info Not Available Drug Allergy Problems Problem Type Condition Code Onset Dates Condition Status Problem Hypercholesterolemia E78.0 Active Problem HTN (hypertension) I10 Active Problem Benign prostatic hyperplasia, presence of lower urinary tract symptoms unspecified, unspecified morphology N40.0 Active Assessment Viral illness B34.9 Active Problem Diabetes mellitus E11.9 Active Assessment Body aches R52 Active Medications Medication Code System Code Instructions Start Date End Date Status Dosage Pravastatin Sodium [facility] [address]-01 20 mg Orally Once a day Oct 01, 2015 1 tablet Flomax [facility] 42415157411 0.4 MG Orally Once a day 1 tablet Blood Glucose Monitor System [facility] [address] w/Device dispense per insurance. Pt to test once a day. DX: E11.9 Sep 30, 2015 as directed Pioglitazone HCl [facility] [address]-70 45 MG Orally Once a day Oct 31, 2015 1 tablet Lisinopril [facility] [address]-28 5 mg Orally Once a day Oct 31, 2015 1 tablet Procedures Procedure Coding System Code Date [facility] VISIT ESTABLISHED PATIENT CPT-4 G0467 Aug 21, 2016 Office Visit, Est Pt., Level 3 CPT-4 84383 Aug 21, 2016 INFLUENZA ASSAY W/OPTIC CPT-4 07927 Aug 21, 2016 Vital Signs Date/Time: Aug 21, 2016 Cardiac Monitoring Heart Rate 76 bpm Weight 242.6 lbs Height 72 in BMI 32.90 Index Blood Pressure Diastolic 92 mmHg Blood Pressure Systolic 140 mmHg Results Name Result Date Reference Range Unit Abnormality Flag INFLUENZA A & B (IN HOUSE) ----Exp date 2018-02-1220160821 ----INFLUENZA A negative [id number] ----INFLUENZA B negative [id number] ----Control + [id number] ----Lot # [id number] Summary Purpose [employer] Submission
--- OUTSIDE RECORDS SUMMARY | 2018-09-22 21:51 | XMS REPORT ---
Author Author PETER GONSALVES [facility] [employer] Address Unknown Phone Unavailable Care Team Providers Care Senior Investment Manager Name Role Phone MAJOR PETER CP Unavailable Allergies, Adverse Reactions, Alerts Substance Reaction Event Type N.K.D.A. Info Not Available Non Drug Allergy Problems Problem Type Condition Code Onset Dates Condition Status Assessment Physical exam Z00.00 Active Medications No Known Medications Procedures Procedure Coding System Code Date URINALYSIS, AUTO, W/O SCOPE CPT-4 54831 Sep 23, 2015 Office Visit, New Pt., Level 4 CPT-4 11961 Sep 23, 2015 Vital Signs Date/Time: Sep 23, 2015 Temperature 97.7 F Weight 233.8 lbs Height 72 in BMI 31.71 Index Blood Pressure Diastolic 86 mmHg Blood Pressure Systolic 138 mmHg Cardiac Monitoring Heart Rate 60 bpm Waist 46.5 in Results Name Result Date Reference Range Unit Abnormality Flag UA LONG DIP (IN HOUSE) ----BREANNA negative 20150923 ----NIT negative 20150923 ----SG 1.015 20150923 ----KET negative 20150923 ----ANITHA negative 20150923 ----GLU 2+ 20150923 ----Odor none 20150923 ----pH 5.0 20150923 ----BLO negative 20150923 ----URO 1.0 20150923 ----Protein negative 20150923 ----Lot # [id number] ----Exp date 20150923 ----Clarity clear 20150923 ----Color yellow [id number] Summary Purpose [employer] Submission
--- OUTSIDE RECORDS SUMMARY | 2018-09-22 21:51 | XMS REPORT ---
Author Author [place] PETER Organization [facility] Address [address] [place] [address] Care Team Providers Care Cigarette Tipper Name Role Phone luceroAndieALEJANDRASONAPETER Unavailable PROBLEMS Type Condition ICD9-CM Code IUQ26-AY Code Onset Dates Condition Status SNOMED Code Problem Benign prostatic hyperplasia, presence of lower urinary tract symptoms unspecified, unspecified morphology N40.0 Active 947127510 Problem HTN (hypertension) I10 Active 12653786 Problem Diabetes mellitus E11.9 Active 02433209 Problem Pure hypercholesterolemia E78.00 Active 943905080 ALLERGIES No Information ENCOUNTERS Encounter Location Date Diagnosis [facility] [id number] [place] [address] 67186- [address]74 08 Sep, 2017 Diabetes mellitus E11.9 [facility] [id number] [place] [address] 55162- 0025 Jul, Diabetes mellitus E11.9 ; HTN (hypertension) I10 ; Pure hypercholesterolemia E78.00 and Benign prostatic hyperplasia, presence of lower urinary tract symptoms unspecified, unspecified morphology N40.0 [place] [id number] [place] [address] 58929- 6168 Apr, Diabetes mellitus E11.9 ; HTN (hypertension) I10 ; Pure hypercholesterolemia E78.00 and Benign prostatic hyperplasia, presence of lower urinary tract symptoms unspecified, unspecified morphology N40.0 [facility] [id number] [place] [address] 33998- 3081 Apr, Diabetes mellitus E11.9 [place] [id number] [place] [address] 08023- 0469 Jan, Medicare welcome exam Z00.00 ; Medicare annual wellness visit, initial Z00.00 ; Medicare annual wellness visit, subsequent Z00.00 ; Diabetes mellitus E11.9 ; HTN (hypertension) I10 and Pure hypercholesterolemia E78.00 [place] [id number] [place] [address] 46908- 8281 Dec, Hyperlipemia E78.5 and Diabetes mellitus E11.9 [place] [address] [address]- [address] Nov, Diabetes mellitus E11.9 ; Hypercholesterolemia E78.0 ; Benign prostatic hyperplasia, presence of lower urinary tract symptoms unspecified, unspecified morphology N40.0 and HTN (hypertension) I10 [place] [address] [address]- [address] Nov, Hypercholesterolemia E78.0 ; Benign prostatic hyperplasia, presence of lower urinary tract symptoms unspecified, unspecified morphology N40.0 ; HTN (hypertension) I10 and Diabetes mellitus E11.9 [facility] [place] [address] [address] Aug, Body aches R52 and Viral illness B34.9 [place] [id number] [place] [address] 62153- 7085 Jul, Diabetes mellitus E11.9 ; Hypercholesterolemia E78.0 ; Benign prostatic hyperplasia, presence of lower urinary tract symptoms unspecified, unspecified morphology N40.0 and HTN (hypertension) I10 [place] [id number] [place] [address] 19016- 3521 Mar, Diabetes mellitus E11.9 ; Hypercholesterolemia E78.0 ; HTN ( hypertension) I10 and Benign prostatic hyperplasia, presence of lower urinary tract symptoms unspecified, unspecified morphology N40.0 [place] [id number] [place] [address] 44006- 6477 Jan, [facility] [id number] [place] [address] 87310 -6707 Dec, Sinusitis J32.9 [place] [id number] [place] [address] 86141- 5376 Dec, [place] [address] [address] 14 Dec, 2015 [place] [address] [place] [address] 78858- 5708 03 Dec, 2015 Diabetes mellitus E11.9 [place] [address] [address] 15 Oct, 2015 [place] [id number] [place] [address] 80678- 2957 Oct, Diabetes mellitus E11.9 ; Hypercholesterolemia E78.0 and HTN (hypertension) I10 [place] [id number] [place] [address] 46006- 6559 13 Oct, 2015 [place] [id number] [place] [address] 20820- 1045 Sep, Hyperlipemia E78.5 [place] [id number] [place] [address] 49439- 4638 Sep, Elevated blood sugar R73.09 and Diabetes mellitus E11.9 [place] [address] [address] 07 Sep, 2015 Physical exam Z00.00 IMMUNIZATIONS No Known Immunizations SOCIAL HISTORY Never Assessed REASON FOR VISIT med refills PLAN OF CARE VITAL SIGNS MEDICATIONS Medication Instructions Dosage Frequency Start Date End Date Duration Status Pioglitazone HCl 45 MG Orally Once a day 1 tablet 24h Oct, 30 days Active Lisinopril 5 mg Orally Once a day 1 tablet 24h 30 Active Pravastatin Sodium 20 mg Orally Once a day 1 tablet 24h 30 Active Flomax 0.4 MG Orally Once a day 1 tablet 24h 30 Active RESULTS No Results PROCEDURES No Known procedures INSTRUCTIONS MEDICATIONS ADMINISTERED No Known Medications MEDICAL (GENERAL) HISTORY Type Description Date Medical History Diabetes type II Medical History hyperlipidemia Medical History htn Surgical History appendectomy Surgical History left knee repair Surgical History left knee replacement Hospitalization History surgeries
--- OUTSIDE RECORDS SUMMARY | 2018-09-22 21:51 | XMS REPORT ---
Author PETER Crabtree [facility] [employer] Address Unknown Phone Unavailable Care Team Providers Care Leadership Development Consultant Name Role Phone PETER GONSALVES Unavailable Allergies No Known Allergies Problems Problem Type Condition Code Onset Dates Condition Status Assessment Hyperlipemia E78.5 Active Problem Diabetes mellitus E11.9 Active Medications Medication Code System Code Instructions Start Date End Date Status Dosage Pravastatin Sodium [facility] [address]-51 20 MG Orally Once a day Oct 01, 2015 1 tablet Results No Known Results Summary Purpose [employer] Submission
--- OUTSIDE RECORDS SUMMARY | 2018-09-22 21:51 | XMS REPORT ---
Author PETER Crabtree [facility] [employer] Address Unknown Phone Unavailable Care Team Providers Care Behavioral Assistant Name Role Phone PETER GONSALVES CP Unavailable Allergies, Adverse Reactions, Alerts Substance Reaction Event Type N.K.D.A. Info Not Available Non Drug Allergy Problems Problem Type Condition Code Onset Dates Condition Status Problem HTN (hypertension) I10 Active Problem Diabetes mellitus E11.9 Active Problem Hypercholesterolemia E78.0 Active Assessment HTN (hypertension) I10 Active Assessment Diabetes mellitus E11.9 Active Assessment Hypercholesterolemia E78.0 Active Medications Medication Code System Code Instructions Start Date End Date Status Dosage Pravastatin Sodium [facility] [address]-43 20 MG Orally Once a day Oct 01, 2015 1 tablet Blood Glucose Monitor System [facility] 45[address]-10747 w/Device dispense per insurance. Pt to test once a day. DX: E11.9 Sep 30, 2015 as directed Pioglitazone HCl [facility] [address]-37 45 MG Orally Once a day Oct 31, 2015 1 tablet Lisinopril [facility] [address]-41 5 MG Orally Once a day Oct 31, 2015 1 tablet Procedures Procedure Coding System Code Date Office Visit, Est Pt., Level 4 CPT-4 42103 Oct 31, 2015 [facility] VISIT ESTABLISHED PATIENT CPT-4 G0467 Oct 31, 2015 Vital Signs Date/Time: Oct 31, 2015 Temperature 98.3 F Weight 228 lbs Height 72 in BMI 30.92 Index Blood Pressure Diastolic 82 mmHg Blood Pressure Systolic 144 mmHg Cardiac Monitoring Heart Rate 80 bpm Results No Known Results Summary Purpose [employer] Submission
--- OUTSIDE RECORDS SUMMARY | 2018-09-22 21:52 | XMS REPORT ---
Author PETER Crabtree [facility] [employer] Address Unknown Phone Unavailable Care Team Providers Care Television Camera Operator Name Role Phone PETER GONSALVES Unavailable Allergies No Known Allergies Problems Problem Type Condition Code Onset Dates Condition Status Problem Diabetes mellitus E11.9 Active Medications Medication Code System Code Instructions Start Date End Date Status Dosage Actos [facility] [address]-97 30 MG Orally Once a day Sep 30, 2015 1 tablet Results No Known Results Summary Purpose [employer] Submission
[2018-09-22] MEDS ORDERED: RT-ALBUTEROL/IPRATROPIUM 3 ML (DUONEB) VIAL ONE (22:14)
[2018-09-22] MEDS ORDERED: RT-ALBUTEROL/IPRATROPIUM 3 ML (DUONEB) VIAL INH ONE (22:15)
--- NOTE | 2018-09-22 22:31 | ED Respiratory ---
General Chief Complaint: Respiratory Problems Stated Complaint: SOB Nursing Triage Note: Pt reports SOA for past couple weeks and "allergies" flaring up. Pt reports feeling as if he can't catch his breath. Source: patient Exam Limitations: no limitations History of Present Illness Date Seen by Provider: Sep 22, 2018 Time Seen by Provider: 22:08 Initial Comments Here with report of shortness of air for the last couple of weeks intermittently. Has been treated for bronchitis. Overall it's worse tonight and he is off treatments. Denies fever or chills. Denies nausea or vomiting. Reports chest tightness. Timing/Duration: week, getting worse, changing over time Severity: moderate Prior Episodes/Possible Cause: occasional episodes Modifying Factors: Worse With Activity; Improves With Rest Associated Symptoms: chest pain/soreness, cough; No fever/chills; nasal congestion, shortness of breath, wheezing Allergies and Home Medications Allergies Coded Allergies: No Known Drug Allergies (Unverified , 09/22/18) Patient Home Medication List Home Medication List Reviewed: Yes Review of Systems Review of Systems Constitutional: see HPI; No chills, No fever EENTM: see HPI Respiratory: cough, short of breath, wheezing Cardiovascular: No edema, No palpitations Gastrointestinal: No abdominal pain, No nausea, No vomiting Musculoskeletal: no symptoms reported Skin: no symptoms reported Past Olniocd-Yloomi-Lbuzsq Hx Past Med/Social Hx: Reviewed Nursing Past Med/Soc Hx Patient Social History Alcohol Use: Denies Use Recreational Drug Use: No Smoking Status: Former Smoker Recent Foreign Travel: No Contact w/Someone Who Travel: No Recent Infectious Disease Expo: No Recent Hopitalizations: No Physical Abuse: No Sexual Abuse: No Mistreated: No Fear: No Seasonal Allergies Seasonal Allergies: Yes Past Medical History Abdominal, Appendectomy, Orthopedic Respiratory: No Cardiac: Yes High Cholesterol, Hypertension Neurological: No Genitourinary: Yes Prostate Problems Gastrointestinal: No Musculoskeletal: No Endocrine: No HEENT: No Cancer: No Psychosocial: No Integumentary: No Blood Disorders: No Family Medical History Reviewed Nursing Family Hx Physical Exam Vital Signs - First Documented 09/22/18 21:56 Temp 99.3 Pulse 103 Resp 20 B/P (MAP) 116/69 (85) Pulse Ox 93 O2 Delivery Room Air Capillary Refill : Less Than 3 Seconds Height: 6'0" Weight: 240lbs. oz. 108.309321og; BMI Method:Stated General Appearance: WD/WN, no apparent distress HEENT: PERRL/EOMI, pharynx normal Neck: full range of motion, supple Respiratory: no respiratory distress, wheezing, expiration Cardiovascular: no murmur, tachycardia Gastrointestinal: non tender, soft Extremities: non-tender, normal inspection Neurologic/Psychiatric: alert, oriented x 3 Skin: normal color, warm/dry Focused Exam Lactate Level 09/22/18 23:45: Lactic Acid Level 1.44 Lactic Acid Level Laboratory Tests Test 09/22/18 23:45 Lactic Acid Level 1.44 MMOL/L (0.50-2.00) Progress/Results/Core Measures Suspected Sepsis Recent Fever Within 48 Hours: No Infection Criteria Present: Suspected New Infection New/Unexplained Altered Menta: No Sepsis Screen: No Definite Risk SIRS Temperature:99.3 Pulse: 103 Respiratory Rate: 20 Laboratory Tests 09/22/18 23:45: White Blood Count 6.0 Blood Pressure 116 /69 Mean: 85 09/22/18 23:45: Lactic Acid Level 1.44 Laboratory Tests 09/22/18 23:45: Creatinine 0.72, Platelet Count 211, Total Bilirubin 0.6 Results/Orders Lab Results Laboratory Tests Test 09/22/18 22:17 09/22/18 23:45 Range/Units Glucometer 112 H 70-110 MG/DL White Blood Count 6.0 4.3-11.0 10^3/uL Red Blood Count 4.56 4.35-5.85 10^6/uL Hemoglobin 14.1 13.3-17.7 G/DL Hematocrit 42 40-54 % Mean Corpuscular Volume 91 80-99 FL Mean Corpuscular Hemoglobin 31 25-34 PG Mean Corpuscular Hemoglobin Concent 34 32-36 G/DL Red Cell Distribution Width 14.4 10.0-14.5 % Platelet Count 211 130-400 10^3/uL Mean Platelet Volume 10.1 7.4-10.4 FL Neutrophils (%) (Auto) 60 42-75 % Lymphocytes (%) (Auto) 18 12-44 % Monocytes (%) (Auto) 13 H 0-12 % Eosinophils (%) (Auto) 8 0-10 % Basophils (%) (Auto) 0 0-10 % Neutrophils # (Auto) 3.6 1.8-7.8 X 10^3 Lymphocytes # (Auto) 1.1 1.0-4.0 X 10^3 Monocytes # (Auto) 0.8 0.0-1.0 X 10^3 Eosinophils # (Auto) 0.5 H 0.0-0.3 10^3/uL Basophils # (Auto) 0.0 0.0-0.1 10^3/uL Sodium Level 135 135-145 MMOL/L Potassium Level 4.3 3.6-5.0 MMOL/L Chloride Level 104 98-107 MMOL/L Carbon Dioxide Level 19 L 21-32 MMOL/L Anion Gap 12 5-14 MMOL/L Blood Urea Nitrogen 14 7-18 MG/DL Creatinine 0.72 0.60-1.30 MG/DL Estimat Glomerular Filtration Rate > 60 BUN/Creatinine Ratio 19 Glucose Level 132 H 70-105 MG/DL Lactic Acid Level 1.44 0.50-2.00 MMOL/L Calcium Level 8.8 8.5-10.1 MG/DL Corrected Calcium 9.1 8.5-10.1 MG/DL Total Bilirubin 0.6 0.1-1.0 MG/DL Aspartate Amino Transf (AST/SGOT) 21 5-34 U/L Alanine Aminotransferase (ALT/SGPT) 18 0-55 U/L Alkaline Phosphatase 60 40-136 U/L C-Reactive Protein High Sensitivity 1.09 H 0.00-0.50 MG/DL Total Protein 6.8 6.4-8.2 GM/DL Albumin 3.6 3.2-4.5 GM/DL My Orders Orders - ZAC LINCOLN MD Chest Pa/Lat (2 View) (09/22/18 22:12) Accucheck Stat ONCE (09/22/18 22:12) Albuterol/Ipra Inhalation Soln (Duoneb I (09/22/18 22:15) Svn Small Volume Nebulizer (09/22/18 22:12) Albuterol/Ipra Inhalation Soln (Duoneb I (09/22/18 22:14) Cbc With Automated Diff (09/22/18 23:21) Comprehensive Metabolic Panel (09/22/18 23:21) Hs C Reactive Protein (09/22/18 23:21) Lactic Acid Analyzer (09/22/18 23:21) Blood Culture (09/22/18 23:21) Saline Lock/Iv-Start (09/22/18 23:21) Ns Iv 1000 Ml (Sodium Chloride 0.9%) (09/22/18 23:21) Ct Chest W (09/23/18 00:26) Iohexol Injection (Omnipaque 350 Mg/Ml 1 (09/23/18 01:00) Contrast Received (Contrast Received) (09/23/18 01:00) Ns (Ivpb) (Sodium Chloride 0.9%) (09/23/18 01:00) Prednisone Tablet (Deltasone Tablet) (09/23/18 01:15) Rx-Albuterol Inhaler (Rx-Proair) (09/23/18 01:15) Doxycycline Hyclate Tablet (Vibramycin T (09/23/18 01:19) Medications Given in ED Current Medications Medications Dose Ordered Sig/Angelica Route Start Time Stop Time Status Last Admin Dose Admin Albuterol/ Ipratropium 3 ml ONCE ONCE INH 09/22/18 22:15 09/22/18 22:16 DC 09/22/18 22:18 3 ML Iohexol 100 ml ONCE ONCE IV 09/23/18 01:00 09/23/18 01:01 DC 09/23/18 00:57 75 ML Sodium Chloride 250 ml ONCE ONCE IV 09/23/18 01:00 09/23/18 01:01 DC 09/23/18 00:58 80 ML Sodium Chloride 1,000 ml @ 0 mls/hr Q0M ONCE IV 09/22/18 23:21 09/22/18 23:23 DC 09/22/18 23:46 1,000 MLS/HR Vital Signs/I&O 09/22/18 21:56 Temp 99.3 Pulse 103 Resp 20 B/P (MAP) 116/69 (85) Pulse Ox 93 O2 Delivery Room Air Capillary Refill : Less Than 3 Seconds Blood Pressure Mean: 85 Point of Care Testing Finger Stick Blood Glucose: 112 Progress Note : Progress Note Seen and evaluated. Chest x-ray, DuoNeb, fingerstick blood sugar ordered. Monitor patient. 2320: Multiple patchy infiltrates noted on chest x-ray. We will go ahead and get an IV, labs, blood cultures, lactic acid and anticipate CT of the chest. 0120: CT report notes chronic changes without mass or infiltrate in the chest. This is reassuring. Prednisone 40 mg by mouth. Patient has albuterol inhaler at home. We will go ahead and give doxycycline and given his chronic lung disease and cough. Does have history of easily getting pneumonia. Discharged home with return precautions. Patient verbalize understanding instructions and agreement with plan. Diagnostic Imaging Diagonstic Imaging: Xray Plain Films/CT/US/NM/MRI: chest Comments Bilateral infiltrates patchy to the lower lungs. Reviewed: Reviewed by Me Diagonstic Imaging: CT Plain Films/CT/US/NM/MRI: chest Comments No acute findings. Scattered chronic changes and atelectasis, most prominent at the left lower lobe. No infiltrate. No mass. Reviewed: Reviewed by Me Departure Impression Primary Impression: Bronchitis Disposition: HOME, SELF-CARE Condition: Improved Departure-Patient Inst. Decision time for Depature: 01:22 Referrals: [facility] (PCP/Family) Primary Care Physician Patient Instructions: Acute Bronchitis, Adult (DC) Add. Discharge Instructions: All discharge instructions reviewed with patient and/or family. Voiced understanding. Take medications as directed. Follow-up with your Dr. in a few days for recheck. Return for worse pain, fever, vomiting, weakness, breathing problems or other concerns as needed. Scripts Prednisone (Prednisone) 20 Mg Tab 40 MG PO DAILY, #10 TAB 0 Refills Prov: ZAC LINCOLN MD 09/23/18 Doxycycline Hyclate (Doxycycline Hyclate) 100 Mg Tablet 100 MG PO BID, #20 TAB 0 Refills Prov: ZAC LINCOLN MD 09/23/18 ZAC LINCOLN MD Sep 22, 2018 22:31
[2018-09-22] MEDS ORDERED: NS IV 1000 ML 1,000 ML IV ONE (23:21)
[2018-09-22 23:55] LABS: BASOPHILS % (AUTO) 0 % (0-10); EOSINOPHILS # (AUTO) 0.5 10^3/uL (0.0-0.3); EOSINOPHILS % (AUTO) 8 % (0-10); HEMATOCRIT 42 % (40-54); HEMOGLOBIN 14.1 G/DL (13.3-17.7); LYMPHOCYTES # (AUTO) 1.1 X 10^3 (1.0-4.0); LYMPHOCYTES % (AUTO) 18 % (12-44); MEAN CORPUSCULAR HEMOGLOBIN 31 PG (25-34); MEAN CORPUSCULAR HGB CONC 34 G/DL (32-36); MEAN CORPUSCULAR VOLUME 91 FL (80-99); MEAN PLATELET VOLUME 10.1 FL (7.4-10.4); MONOCYTES # (AUTO) 0.8 X 10^3 (0.0-1.0); MONOCYTES % (AUTO) 13 % (0-12); NEUTROPHILS # (AUTO) 3.6 X 10^3 (1.8-7.8); NEUTROPHILS % (AUTO) 60 % (42-75); PLATELET COUNT 211 10^3/uL (130-400); RED BLOOD COUNT 4.56 10^6/uL (4.35-5.85); RED CELL DISTRIBUTION WIDTH 14.4 % (10.0-14.5)
[2018-09-23 00:15] LABS: ALANINE AMINOTRANSFERASE 18 U/L (0-55); ALBUMIN 3.6 GM/DL (3.2-4.5); ALKALINE PHOSPHATASE 60 U/L (40-136); BILIRUBIN,TOTAL 0.6 MG/DL (0.1-1.0); BUN/CREATININE RATIO 19; CALCIUM 8.8 MG/DL (8.5-10.1); CARBON DIOXIDE 19 MMOL/L (21-32); CHLORIDE 104 MMOL/L (98-107); CREATININE SERUM 0.72 MG/DL (0.60-1.30); GFR ESTIMATED > 60; GLUCOSE 132 MG/DL (70-105); POTASSIUM 4.3 MMOL/L (3.6-5.0); SODIUM 135 MMOL/L (135-145); TOTAL PROTEIN 6.8 GM/DL (6.4-8.2)
[2018-09-23] MEDS ORDERED: NS 250 ML (IVPB) BAG IV ONE (01:00)
[2018-09-23] MEDS ORDERED: RECEIVED CONTRAST (Hold Metformin) IV SCH (01:00)
[2018-09-23] MEDS ORDERED: IOHEXOL 350 MG/ML 100 ML (OMNIPAQUE 350) VIAL IV ONE (01:00)
[2018-09-23] MEDS ORDERED: predniSONE 20 MG TAB PO ONE (01:15)
[2018-09-23] MEDS ORDERED: RX-ALBUTEROL INHALER (PROAIR) 8 GM IH PRN (01:15)
[2018-09-23] MEDS ORDERED: DOXYCYCLINE 100 MG (VIBRAMYCIN) TABLET PO STA (01:19)
[2018-09-23] MEDS ORDERED: DOXY100T2 PO (01:24)
[2018-09-23] MEDS ORDERED: PRD20T PO (01:24)
[2018-09-23 02:08] VITALS: BP 122/87
[2018-09-23] MEDS ORDERED: PIOG45TA65 PO (02:14)
[2018-09-23] MEDS ORDERED: LISI-556 PO (02:14)
[2018-09-23] MEDS ORDERED: PRAV20TA3 PO (02:14)
[2018-09-23] MEDS ORDERED: TAMS0.4C98 PO (02:14)
--- NOTE | 2018-09-23 06:36 | Diagnostic Imaging Report ---
INDICATION: Cough and congestion. COMPARISON: None. FINDINGS: Frontal and lateral views of the chest demonstrate cardiac enlargement without pulmonary edema. Basilar infiltrates are present. No pneumothorax is seen. Osseous structures are stable. There is no large effusion. IMPRESSION: 1. Cardiac enlargement without pulmonary edema. 2. Basilar infiltrates. Followup recommended. Dictated by: Dictated on workstation # [id number]
--- NOTE | 2018-09-23 08:01 | Diagnostic Imaging Report ---
PROCEDURE: CT chest with contrast only. TECHNIQUE: Multiple contiguous axial images were obtained through the chest after administration of intravenous contrast. DATE: September 23, 2018. COMPARISON: Chest radiographs September 22, 2018. INDICATION: 73-year-old male, cough and congestion for 2 weeks. FINDINGS: There is no identified pulmonary nodule or lung mass. There is mild right middle lobe and left lower lobe bronchiectasis. There are predominantly linear opacities in the right middle lobe, right lower lobe, left lower lobe, and left upper lobe with some areas of peripheral reticular opacity most likely relating to chronic lung changes and scarring. There is no additionally noted focal airspace consolidation. There is no pneumothorax. There is no pleural effusion. The central airways are patent. There is no identified central or segmental pulmonary embolus. There is limited assessment for subsegmental pulmonary emboli given the timing of the contrast bolus. The main pulmonary artery is within normal limits in diameter. The heart is not enlarged. There is no pericardial effusion. There are atherosclerotic calcifications. There is a precarinal lymph node on axial image 27 measuring 12 mm in short axis. There is a left paratracheal lymph node on the same image measuring 10 mm in short axis. There are prominent right hilar lymph nodes with one example on axial image 38 measuring up to 14 mm in short axis. There also are mildly prominent left hilar lymph nodes. There is a subcarinal lymph node on axial image 37 which measures 13 mm in short axis. There is a low-attenuation left renal lesion on axial image 74 which measures 2.7 cm in size with internal attenuation consistent with a benign left renal cyst. There is a focal area of right renal cortical scarring with small benign calcification. Additional evaluation of the visualized portions of the upper abdomen is unremarkable. There are degenerative changes of the spine. There is no identified acute bony abnormality. IMPRESSION: CT CHEST. 1. Mild bronchiectasis in the right middle lobe and left lower lobe with multilobar predominantly linear opacities with some areas of peripheral reticular opacities compatible with chronic lung changes and scarring. 2. No identified acute cardiopulmonary abnormality. 3. Mildly prominent mediastinal and hilar adenopathy which potentially could relate to the chronic lung changes. Dictated by: Dictated on workstation # [id number]
== END 2018-09-23 02:08 | disposition home or self-care (01) ==
LOC: ER 21:46
DX: J40 Bronchitis, not specified as acute or chronic (principal); E78.00 Pure hypercholesterolemia, unspecified; I10 Essential (primary) hypertension; Z87.09 Personal history of other diseases of the respiratory system; Z87.891 Personal history of nicotine dependence; Z90.49 Acquired absence of other specified parts of digestive tract
CPT/HCPCS: 36415; 71046; 71260; 80053; 82962; 83605; 85025; 86141; 87040

== ENCOUNTER 2018-10-19 14:36 | Emergency (ER) | payer MEDICARE ==
[~2018-10-19] VITALS: Ht 182.9 cm; Wt 108.0 kg
[~2018-10-19 14:36] MED LIST: DOXY100T2 PO; LISI-556 PO; PIOG45TA65 PO; PRAV20TA3 PO; PRD20T PO; TAMS0.4C98 PO
[2018-10-19] MEDS ORDERED: HYDROcodone/APAP 7.5 MG/325 MG (LORTAB, LORCET PLUS) TABLET PO STA (15:26)
--- NOTE | 2018-10-19 15:26 | ED Fall/Injury ---
General Chief Complaint: Trauma-Non Activation Stated Complaint: FALL;HEAD INJ Nursing Triage Note: PATIENT STATES HE SLIPPED ON FROZEN GROUND AND FELL. HE HIT HIS HEAD AND IS HAVING PAIN IN HIS RIGHT SIDE UNDERNEATH HIS ARMPIT. THERE IS A WOUND ABOVE HIS RIGHT EYEBROW COVERED IN A BANDAID, BLEEDING CONTROLLED. DENIES LOSS OF CONSCIOUSNESS. Source: patient Exam Limitations: no limitations History of Present Illness Date Seen by Provider: Oct 19, 2018 Time Seen by Provider: 15:11 Initial Comments Here with report of fall while walking through a field. He tripped over a frozen mud clod. He did scrape his right brow and left knee. When he hit the ground, he landed on his right arm across this chest and has complaint of pain to the right anterior chest at around the region of the breast in the anterior lateral region. Pain worse with deep breathing and movement. Better with rest. Denies loss of consciousness. Last tetanus shot was about 3 years ago. He is able to walk without difficulty. Occurred: just prior to arrival (proximally 2 hours ago) Severity: mild Injuries/Pain Location: face, lower extremity Context: tripped Loss of Consciousness: no loss of consciousness Modifying Factors: Worse With Movement; Improves With Rest Associated Symptoms (Fall): Chest Pain; No Confusion, No Headache, No Muscle Spasms, No Nausea/Vomiting, No Neck Pain, No Shortness of Air, No Trouble Walking Allergies and Home Medications Allergies Coded Allergies: No Known Drug Allergies (Unverified , 09/22/18) Home Medications Lisinopril 5 Mg Tablet, 5 MG PO DAILY, (Reported) Pioglitazone HCl 45 Mg Tablet, 45 MG PO DAILY, (Reported) Pravastatin Sodium 20 Mg Tablet, 20 MG PO DAILY, (Reported) Tamsulosin HCl 0.4 Mg Cap, 0.4 MG PO DAILY, (Reported) Patient Home Medication List Home Medication List Reviewed: Yes Review of Systems Review of Systems Constitutional: see HPI; No chills, No fever Eyes: Denies Decreased Acuity, Denies Foreign Body Sensation, Denies Photophobia Ears, Nose, Mouth, Throat: no symptoms reported Respiratory: see HPI; No cough, No short of breath Cardiovascular: see HPI; No palpitations, No syncope Gastrointestinal: No abdominal pain, No nausea, No vomiting Genitourinary: no symptoms reported Musculoskeletal: see HPI Skin: see HPI; No change in color; lesions (abrasion right brow and left knee) Psychiatric/Neurological: No Symptoms Reported Past Lqlueue-Imvfbk-Suseqk Hx Past Med/Social Hx: Reviewed Nursing Past Med/Soc Hx Patient Social History Alcohol Use: Occasionally Uses Recreational Drug Use: No Smoking Status: Never a Smoker 2nd Hand Smoke Exposure: No Recent Foreign Travel: No Contact w/Someone Who Travel: No Recent Infectious Disease Expo: No Recent Hopitalizations: No Seasonal Allergies Seasonal Allergies: Yes Past Medical History Abdominal, Appendectomy, Orthopedic Respiratory: No Cardiac: Yes High Cholesterol, Hypertension Neurological: No Genitourinary: Yes Prostate Problems Gastrointestinal: No Musculoskeletal: No Endocrine: No HEENT: No Cancer: No Psychosocial: No Integumentary: No Blood Disorders: No Family Medical History Reviewed Nursing Family Hx Physical Exam Vital Signs Vital Signs - First Documented 10/19/18 14:45 Pulse 89 Resp 20 B/P (MAP) 148/79 (102) Pulse Ox 96 Capillary Refill : Less Than 3 Seconds Height, Weight, BMI Height: 6'0" Weight: 238lbs. 0oz. 107.133138ka; BMI Method:Stated General Appearance: WD/WN, no apparent distress HEENT: PERRL/EOMI, TMs normal, pharynx normal Neck: full range of motion, supple Cardiovascular: regular rate, rhythm, no murmur Respiratory: lungs clear, normal breath sounds, other (tender along the anterior lateral chest wall at the level of the breast on the right. No obvious deformity. Small amount of bruising to the lateral aspect at the lower breast line) Gastrointestinal: non tender, soft Back: normal inspection, no CVA tenderness, no vertebral tenderness Extremities: non-tender, normal inspection Neurologic/Psychiatric: alert, oriented x 3 Skin: warm/dry, other (superficial abrasion to the right brow and above the eyebrow. Overall encompasses an 2 x 3 cm area. Superficial abrasion to the left knee anterior 1 x 2 cm) Progress/Results/Core Measures Results/Orders My Orders Orders - ZAC LINCOLN MD Ct Head Wo (10/19/18 15:21) Ribs/Unilateral With Chest (10/19/18 15:21) Hydrocodone/Apap 7.5/325 Tab (Lortab 7. (10/19/18 15:26) Vital Signs/I&O 10/19/18 14:45 Pulse 89 Resp 20 B/P (MAP) 148/79 (102) Pulse Ox 96 Blood Pressure Mean: 102 Progress Progress Note : Progress Note Seen and evaluated. CT head ordered due to age and head injury. X-ray and right rib series ordered due to chest wall pain. Hydrocodone 7.5 one tab by mouth given. Monitor patient. Diagnostic Imaging Diagonstic Imaging: CT Plain Films/CT/US/NM/MRI: head Comments [facility] [place], [place] NAME: [facility] REC#: [id number] PT STATUS: REG ER : 1945 PHYSICIAN: ZAC LINCOLN MD ADMIT DATE: 10/19/18/ER Draft Date of Exam:10/19/18 CT HEAD WO PROCEDURE: CT head without contrast. TECHNIQUE: Multiple contiguous axial images were obtained through the brain without the use of intravenous contrast. INDICATION: Fall with right-sided head pain and swelling. FINDINGS: There is right frontal supraorbital scalp swelling. No calvarial fracture deformity is identified. No abnormal extra-axial fluid collection. No intracerebral hemorrhage. There is some mild cortical atrophy predominantly anteriorly without hydrocephalus. No mass or mass effect. There is membrane thickening, fluid, and opacification of multiple bilateral ethmoid air cells and the partially visualized sphenoid sinuses. The frontal sinuses are clear. The maxillary sinus is below the [id number]. IMPRESSION: Right supraorbital frontal soft tissue swelling. No visualized calvarial fracture. No intracerebral hemorrhage. Paranasal sinus disease is partially visualized. Dictated on workstation # [id number] Dict: 10/19/18 1603 Trans: 10/19/18 1606 [id number] Interpreted by: LEISA VILLA Electronically signed by: Diagonstic Imaging: Xray Plain Films/CT/US/NM/MRI: chest, other Comments [facility] [place] [place] NAME: [facility] REC#: [id number] PT STATUS: REG ER : 1945 PHYSICIAN: ZAC LINCOLN MD ADMIT DATE: 10/19/18/ER Draft Date of Exam:10/19/18 RIBS/UNILATERAL WITH CHEST EXAMINATION: Chest with right ribs. INDICATION: Rib pain. TECHNIQUE: A single PA view of the chest and three views of the right ribs were obtained. FINDINGS: The view of the chest shows that the heart is enlarged but stable when compared to 09/22/2018. The prominent right hilum noted on the prior study is again evident and no different. The previous study did show patchy infiltrates involving both lower lobes. Those findings are again visualized and no different as well. The mediastinum is not widened. Views of the right ribs show no sign of a displaced rib fracture. No other bony abnormality is appreciated and there is no evidence for an injury to the underlying right lung such as a pneumothorax. IMPRESSION: 1. There is cardiomegaly and persistent patchy areas of atelectasis/infiltrate involving the lung bases. 2. There is no sign of an acute injury to the right ribs and there is no evidence for a pneumothorax on the right. Dictated on workstation # [id number] Dict: 10/19/18 1625 Trans: 10/19/18 1630 [id number] Interpreted by: YASH GARRIDO MD Electronically signed by: Reviewed: Reviewed by Me Departure Impression Primary Impression: Contusion of rib on right side Qualified Codes: S20.211A - Contusion of right front wall of thorax, initial encounter Additional Impression: Multiple abrasions Disposition: 01 HOME, SELF-CARE Condition: Improved Departure-Patient Inst. Decision time for Depature: 16:47 Referrals: [facility] (PCP/Family) Primary Care Physician Patient Instructions: RIB CONTUSION, Skin Abrasions (DC) Add. Discharge Instructions: All discharge instructions reviewed with patient and/or family. Voiced understanding. You may take Tylenol/acetaminophen 1000 mg every 6 hours as needed for pain. You may take ibuprofen 600 mg every 8 hours as needed for pain. Drink plenty of fluids. Use antibiotic ointment over wounds once or twice daily for the next several days and then as needed. Return for worse pain, fever, vomiting, weakness, breathing problems or other concerns as needed. ZAC LINCOLN MD Oct 19, 2018 15:26
--- NOTE | 2018-10-19 16:06 | Diagnostic Imaging Report ---
PROCEDURE: CT head without contrast. TECHNIQUE: Multiple contiguous axial images were obtained through the brain without the use of intravenous contrast. INDICATION: Fall with right-sided head pain and swelling. FINDINGS: There is right frontal supraorbital scalp swelling. No calvarial fracture deformity is identified. No abnormal extra-axial fluid collection. No intracerebral hemorrhage. There is some mild cortical atrophy predominantly anteriorly without hydrocephalus. No mass or mass effect. There is membrane thickening, fluid, and opacification of multiple bilateral ethmoid air cells and the partially visualized sphenoid sinuses. The frontal sinuses are clear. The maxillary sinus is below the [id number]. IMPRESSION: Right supraorbital frontal soft tissue swelling. No visualized calvarial fracture. No intracerebral hemorrhage. Paranasal sinus disease is partially visualized. Dictated by: Dictated on workstation # [id number]
--- NOTE | 2018-10-19 16:31 | Diagnostic Imaging Report ---
EXAMINATION: Chest with right ribs. INDICATION: Rib pain. TECHNIQUE: A single PA view of the chest and three views of the right ribs were obtained. FINDINGS: The view of the chest shows that the heart is enlarged but stable when compared to 09/22/2018. The prominent right hilum noted on the prior study is again evident and no different. The previous study did show patchy infiltrates involving both lower lobes. Those findings are again visualized and no different as well. The mediastinum is not widened. Views of the right ribs show no sign of a displaced rib fracture. No other bony abnormality is appreciated and there is no evidence for an injury to the underlying right lung such as a pneumothorax. IMPRESSION: 1. There is cardiomegaly and persistent patchy areas of atelectasis/infiltrate involving the lung bases. 2. There is no sign of an acute injury to the right ribs and there is no evidence for a pneumothorax on the right. Dictated by: Dictated on workstation # [id number]
[2018-10-19 16:58] VITALS: BP 125/90
== END 2018-10-19 16:57 | disposition home or self-care (01) ==
LOC: EDUNIT# 14:36 → ER 14:37
DX: S20.211A Contusion of right front wall of thorax, initial encounter (principal); S00.81XA Abrasion of other part of head, initial encounter; E78.00 Pure hypercholesterolemia, unspecified; I10 Essential (primary) hypertension; Z90.49 Acquired absence of other specified parts of digestive tract; W01.0XXA Fall on same level from slipping, tripping and stumbling without subsequent striking against object, initial encounter
CPT/HCPCS: 70450; 71101

== ENCOUNTER 2019-12-10 09:24 | Emergency (ER) | payer MEDICARE ==
[~2019-12-10] VITALS: Ht 182.9 cm; Wt 111.1 kg
[~2019-12-10 09:24] MED LIST changes: -TAMS0.4C98 PO; +TMSL.4C PO
[2019-12-10] MEDS ORDERED: RT-ALBUTEROL/IPRATROPIUM 3 ML (DUONEB) VIAL INH ONE (11:30)
--- NOTE | 2019-12-10 11:36 | Diagnostic Imaging Report ---
EXAM: CHEST PA/LAT (2 VIEW) INDICATION: Productive cough. COMPARISON: 10/19/2018. FINDINGS: Cardiomegaly and prominent central pulmonary vascularity is stable. Patchy airspace consolidation in the lung bases is overall stable. No pleural effusion or pneumothorax. No acute osseous findings. IMPRESSION: 1. Patchy consolidation in the lung bases has overall improved since prior exam. No pleural effusion or pneumothorax. 2. Stable cardiomegaly and prominent central pulmonary vascularity. Dictated by: Dictated on workstation # [id number]
[2019-12-10] MEDS ORDERED: RT-ALBUINH IH (11:54)
[2019-12-10] MEDS ORDERED: AZIT250T12 PO (11:54)
[2019-12-10] MEDS ORDERED: PRD20T PO (11:54)
--- NOTE | 2019-12-10 11:56 | ED Cough/URI ---
General Chief Complaint: Cough/Cold/Flu Symptoms Stated Complaint: COUGH/CONGESTION Nursing Triage Note: Pt amb to room #10 with c/o SOA, cough, et congetion. Pt reports onset of symptoms to be approx x1wk ago. Pt denies nausea, vomiting, diarrhea, or fever. Pt reports productive cough with green phlegm. at side. Sepsis Screen: No Definite Risk History of Present Illness Date Seen by Provider: Dec 10, 2019 Time Seen by Provider: 11:00 Initial Comments 74-year-old male presents with cough and congestion for approximately one week. He did not receive a flu vaccine. He has been having a productive cough. Denies fever. Timing/Duration: week Severity/Quality: productive cough Prior Episodes/Possible Cause: occasional episodes Associated Symptoms: cough, nasal congestion, shortness of breath (chronic, no worse than baseline per patient.) Allergies and Home Medications Allergies Coded Allergies: No Known Drug Allergies (Unverified , 09/22/18) Home Medications Albuterol Sulfate 1 Puff Puff, 2 PUFF IH Q4H 1 PUFF = 90 MCG Prescribed by: IVONNE MCCALL on 12/10/19 1154 Azithromycin 250 Mg Tablet, 250 MG PO UD TAKE 2 TABLETS ON DAY ONE THEN TAKE 1 TABLET DAILY FOR FOUR MORE DAYS Prescribed by: IVONNE MCCALL on 12/10/19 1154 Lisinopril 5 Mg Tablet, 5 MG PO DAILY, (Reported) Pioglitazone HCl 45 Mg Tablet, 45 MG PO DAILY, (Reported) Pravastatin Sodium 20 Mg Tablet, 20 MG PO DAILY, (Reported) Prednisone 20 Mg Tab, 60 MG PO DAILY Prescribed by: IVONNE MCCALL on 12/10/19 1154 Tamsulosin HCl 0.4 Mg Cap, 0.4 MG PO DAILY, (Reported) Patient Home Medication List Home Medication List Reviewed: Yes Review of Systems Review of Systems Constitutional: no symptoms reported, see HPI Respiratory: see HPI, cough, short of breath Cardiovascular: no symptoms reported, see HPI; No chest pain All Other Systems Reviewed Negative Unless Noted: Yes Past Ttvrhst-Ssikjb-Lsubql Hx Past Med/Social Hx: Reviewed Nursing Past Med/Soc Hx Patient Social History Alcohol Use: Regular Use Number of Drinks Today: 0 Alcohol Beverage of Choice: Whiskey Recreational Drug Use: No Smoking Status: Former Smoker 2nd Hand Smoke Exposure: No Recent Foreign Travel: No Contact w/Someone Who Travel: No Recent Infectious Disease Expo: No Recent Hopitalizations: No Seasonal Allergies Seasonal Allergies: Yes Past Medical History Abdominal, Appendectomy, Orthopedic Respiratory: No Cardiac: Yes High Cholesterol, Hypertension Neurological: No Genitourinary: Yes Prostate Problems Gastrointestinal: No Musculoskeletal: No Endocrine: No HEENT: No Cancer: No Psychosocial: No Integumentary: No Blood Disorders: No Physical Exam Vital Signs - First Documented 12/10/19 09:41 Temp 37.1 Pulse 78 Resp 18 B/P (MAP) 120/73 (89) Pulse Ox 95 O2 Delivery Room Air Capillary Refill : Less Than 3 Seconds Height: 6'0" Weight: 238lbs. 0oz. [id number]; 33.00 BMI Method:Stated General Appearance: WD/WN, no apparent distress Eyes: Bilateral Eye Normal Inspection, Bilateral Eye PERRL, Bilateral Eye EOMI HEENT: PERRL/EOMI, normal ENT inspection, TMs normal, pharynx normal Neck: non-tender, full range of motion, supple, normal inspection Respiratory: chest non-tender, lungs clear, no respiratory distress, decreased breath sounds Cardiovascular: normal peripheral pulses, regular rate, rhythm Gastrointestinal: normal bowel sounds, non tender, soft Extremities: normal range of motion, non-tender, normal inspection, normal capillary refill Neurologic/Psychiatric: no motor/sensory deficits, alert, normal mood/affect, oriented x 3 Skin: normal color, warm/dry Progress/Results/Core Measures Suspected Sepsis Recent Fever Within 48 Hours: No Infection Criteria Present: Suspected New Infection New/Unexplained Altered Menta: No Sepsis Screen: No Definite Risk SIRS Temperature: Pulse: 78 Respiratory Rate: 18 Blood Pressure 120 /73 Mean: 89 Results/Orders Micro Results Microbiology 12/10/19 Influenza Types A,B Antigen (ANTONIO) - Final, Complete My Orders Orders - IVONNE MCCALL Chest Pa/Lat (2 View) (12/10/19 11:06) Albuterol/Ipra Inhalation Soln (Duoneb I (12/10/19 11:30) Svn Small Volume Nebulizer (12/10/19 11:26) Medications Given in ED Current Medications Medications Dose Ordered Sig/Angelica Route Start Time Stop Time Status Last Admin Dose Admin Albuterol/ Ipratropium 3 ml ONCE ONCE INH 12/10/19 11:30 12/10/19 11:31 DC 12/10/19 11:35 3 ML Vital Signs/I&O 12/10/19 12/10/19 12/10/19 12/10/19 09:41 09:45 11:35 12:05 Temp 37.1 37.1 Pulse 78 78 Resp 18 18 B/P (MAP) 120/73 (89) 120/73 (89) Pulse Ox 95 97 97 O2 Delivery Room Air Room Air Room Air Room Air Capillary Refill : Less Than 3 Seconds Blood Pressure Mean: 89 Progress Note : Time: 11:00 Progress Note Patient seen and evaluated, will obtain a flu swab and chest x-ray. 1130 DuoNeb breathing treatment per RT. 1200 improved air movement after breathing treatment. Patient does report less SOA. Discharge instructions and return caution reviewed with the patient. All questions answered. Diagnostic Imaging Diagonstic Imaging: Xray Plain Films/CT/US/NM/MRI: chest Comments NAME: GINO ESTRELLA [facility] REC#: [id number] PT STATUS: REG ER : 1945 PHYSICIAN: IVONNE MCCALL ADMIT DATE: 12/10/19/ER Draft Date of Exam:12/10/19 CHEST PA/LAT (2 VIEW) EXAM: CHEST PA/LAT (2 VIEW) INDICATION: Productive cough. COMPARISON: 10/19/2018. FINDINGS: Cardiomegaly and prominent central pulmonary vascularity is stable. Patchy airspace consolidation in the lung bases is overall stable. No pleural effusion or pneumothorax. No acute osseous findings. IMPRESSION: 1. Patchy consolidation in the lung bases has overall improved since prior exam. No pleural effusion or pneumothorax. 2. Stable cardiomegaly and prominent central pulmonary vascularity. Dictated on workstation # [id number] Dict: 12/10/19 1132 Trans: 12/10/19 1136 [id number] Interpreted by: NELSON KIRAN MD Electronically signed by: Reviewed: Reviewed by Me Departure Impression Primary Impression: Bronchitis Disposition: 01 HOME, SELF-CARE Condition: Improved Departure-Patient Inst. Decision time for Depature: 11:55 Referrals: [facility] (PCP/Family) Primary Care Physician Patient Instructions: Bronchiolitis (DC) Add. Discharge Instructions: Increase water intake, 16 ounces every 2 hours while awake. Alternate between Tylenol 650 mg and ibuprofen 600 mg every 4 hours for pain or fever. Take the prednisone and antibiotic, as prescribed. Use the inhaler every 4 hours, take a puff, wait 5 min and take a second one. Follow-up with your primary care provider in 2-3 days if symptoms are not improving or worsen. Return to the emergency department for fever greater than 101 not relieved by Tylenol or ibuprofen, worsening of shortness of breath, new or urgent health care needs. All discharge instructions reviewed with patient and/or family. Voiced understanding. Scripts Albuterol Sulfate (PROAIR HFA) 1 Puff Puff 2 PUFF IH Q4H, #1 INHALER 0 Refills 1 PUFF = 90 MCG Prov: IVONNE MCCALL 12/10/19 Azithromycin (Azithromycin) 250 Mg Tablet 250 MG PO UD, #6 TAB 0 Refills TAKE 2 TABLETS ON DAY ONE THEN TAKE 1 TABLET DAILY FOR FOUR MORE DAYS Prov: IVONNE MCCALL 12/10/19 Prednisone (Prednisone) 20 Mg Tab 60 MG PO DAILY for 3 Days, #9 TAB 0 Refills Prov: IVONNE MCCALL 12/10/19 IVONNE MCCALL Dec 10, 2019 11:56
[2019-12-10 12:05] VITALS: BP 120/73
== END 2019-12-10 12:05 | disposition home or self-care (01) ==
LOC: EDUNIT# 09:24 → ER 09:25
DX: J40 Bronchitis, not specified as acute or chronic (principal); I10 Essential (primary) hypertension; E78.00 Pure hypercholesterolemia, unspecified
CPT/HCPCS: 71046; 87804; 94640

== ENCOUNTER 2021-09-30 08:29 | Emergency (ER) | payer MEDICARE ==
[~2021-09-30] VITALS: Ht 182 cm; Wt 103.0 kg
[~2021-09-30 08:29] MED LIST changes: +AZIT250T12 PO; -LISI-556 PO; +LISI5TAB20 PO; +RT-ALBUINH IH
--- NOTE | 2021-09-30 09:00 | ED GU-Male ---
General Stated Complaint: UTI,CHILLS,SOB Source: patient, family Exam Limitations: no limitations (KAYLEEN BAILEY MED STUDENT) History of Present Illness Date Seen by Provider: Sep 30, 2021 Time Seen by Provider: 08:45 Initial Comments Gino Estrella is a 76 yo M with a history of HTN, DM, and lung fibrosis who presents to the ED today for 1 month of dysuria, increased urinary frequency, chills, weakness, and weight loss. These symptoms have been persistent over the month and he also has had associated decreased appetite and 15lb weight loss. Pt states that he was seen around the onset of his symptoms and given azithromycin which he completed and did not improve. He was then seen yesterday and put on macrobid which has increased his chills and malaise. He has been tested for COVID, last test being negative on 09/06. Timing/Duration: other (1 month) Associated Symptoms: No abdominal pain, No diaphoresis; dysuria, fever/chills, nausea/vomiting, urinary frequency (KAYLEEN BAILEY MED STUDENT) Initial Comments Patient did receive a shot of steroids at the time of initiation of azithromycin presumably for bronchitis. The patient does have a little bit increased work of breathing but states this is his baseline. Oxygen saturations are in the mid 90s while at rest. He is able to speak in complete sentences. His main complaint is his dysuria malaise chills this been going on for the past month and he does not feel like he is getting any better despite azithromycin and Macrobid as well as a round of steroids. All the steroids did he could tell was make his blood sugar go up. He says this morning it was 160 which is okay for him. He does not use insulin. He does not have a urologist or history of urologic surgeries. (GIACOMO GORDON) Allergies and Home Medications Allergies Coded Allergies: No Known Drug Allergies (Unverified , 09/22/18) Patient Home Medication List Home Medication List Reviewed: Yes (GIACOMO GORDON) Albuterol Sulfate (Proair Hfa) 1 Puff Puff, 2 PUFF IH Q4H Prescribed by: IVONNE MCCALL on 12/10/19 1154 Azithromycin (Azithromycin) 250 Mg Tablet, 250 MG PO UD Prescribed by: IVONNE MCCALL on 12/10/19 1154 Lisinopril (Lisinopril) 5 Mg Tablet, 5 MG PO DAILY, (Reported) Entered as Reported by: GARRY MORRISON on 09/23/18213 Pioglitazone HCl (Pioglitazone HCl) 45 Mg Tablet, 45 MG PO DAILY, (Reported) Entered as Reported by: GARRY MORRISON on 09/23/18213 Pravastatin Sodium (Pravastatin Sodium) 20 Mg Tablet, 20 MG PO DAILY, (Reported) Entered as Reported by: GARRY MORRISON on 09/23/18213 Prednisone (Prednisone) 20 Mg Tab, 60 MG PO DAILY Prescribed by: IVONNE MCCALL on 12/10/19 1154 Tamsulosin HCl (Flomax) 0.4 Mg Cap, 0.4 MG PO DAILY, (Reported) Entered as Reported by: GARRY MORRISON on 09/23/18213 Review of Systems Review of Systems Constitutional: chills, malaise, weakness, weight loss EENTM: No blurred vision, No double vision Respiratory: phlegm, short of breath (chronic) Cardiovascular: No chest pain, No palpitations Gastrointestinal: No abdominal pain, No constipation, No diarrhea; nausea; No vomiting Genitourinary: burning, dysuria, frequency Musculoskeletal: No back pain, No muscle stiffness, No muscle cramps Skin: No change in color, No change in hair/nails Psychiatric/Neurological: Denies Anxiety, Denies Depressed Endocrine: Denies Excessive Sweating, Denies Flushing (KAYLEEN BAILEY MED STUDENT) All Other Systemes Reviewed Negative Unless Noted: Yes (GIACOMO GORDON) Past Vskoyou-Iqlrbi-Mhikge Hx Patient Social History Tobacco Use?: No Use of E-Cig and/or Vaping dev: No (GIACOMO GORDON) Seasonal Allergies Seasonal Allergies: Yes (AKYLEEN BAILEY MED STUDENT) Past Medical History Abdominal, Appendectomy, Orthopedic Respiratory: No Cardiac: Yes High Cholesterol, Hypertension Neurological: No Genitourinary: Yes Prostate Problems Gastrointestinal: No Musculoskeletal: No Endocrine: No HEENT: No Cancer: No Psychosocial: No Integumentary: No Blood Disorders: No (KAYLEEN BAILEY MED STUDENT) Physical Exam Vital Signs Vital Signs - First Documented 09/30/21 08:30 Temp 36.7 Pulse 90 Resp 18 B/P (MAP) 134/69 (90) Pulse Ox 95 O2 Delivery Nasal Cannula (GIACOMO GORDON) Vital Signs Capillary Refill : (Wander (f. [employer]) STUDENT) Height, Weight, BMI Height: 6'0" Weight: 238lbs. 0oz. 107.758593ju; 33.00 BMI Method:Stated General Appearance: WD/WN, no apparent distress HEENT: PERRL/EOMI, normal ENT inspection Neck: non-tender, full range of motion, supple, normal inspection Cardiovascular: regular rate, rhythm, no edema, no gallop, no JVD, no murmur Respiratory: chest non-tender, lungs clear, normal breath sounds, no respiratory distress, no accessory muscle use Gastrointestinal: normal bowel sounds, non tender, soft, no organomegaly, no pulsatile mass Back: normal inspection, no CVA tenderness, no vertebral tenderness Extremities: normal range of motion, non-tender, normal inspection, no pedal edema, no calf tenderness Neurologic/Psychiatric: no motor/sensory deficits, alert, normal mood/affect, oriented x 3 Skin: normal color, warm/dry (Wander (f. [employer]) STUDENT) Progress/Results/Core Measures Suspected Sepsis SIRS Temperature: Pulse: Respiratory Rate: Blood Pressure / Mean: (Wander (f. [employer]) STUDENT) Results/Orders Lab Results Laboratory Tests Test 09/30/21 08:42 09/30/21 08:56 09/30/21 09:30 Range/Units Influenza Type A (RT-PCR) Not Detected Not Detecte Influenza Type B (RT-PCR) Not Detected Not Detecte SARS-CoV-2 RNA (RT-PCR) Not Detected Not Detecte White Blood Count 17.0 H 4.3-11.0 10^3/uL Red Blood Count 4.89 4.30-5.52 10^6/uL Hemoglobin 14.8 13.3-17.7 g/dL Hematocrit 44 40-54 % Mean Corpuscular Volume 90 80-99 fL Mean Corpuscular Hemoglobin 30 25-34 pg Mean Corpuscular Hemoglobin Concent 34 32-36 g/dL Red Cell Distribution Width 13.4 10.0-14.5 % Platelet Count 201 130-400 10^3/uL Mean Platelet Volume 9.5 9.0-12.2 fL Immature Granulocyte % (Auto) 1 % Neutrophils (%) (Auto) 78 H 42-75 % Lymphocytes (%) (Auto) 14 12-44 % Monocytes (%) (Auto) 7 0-12 % Eosinophils (%) (Auto) 0 0-10 % Basophils (%) (Auto) 0 0-10 % Neutrophils # (Auto) 13.2 H 1.8-7.8 10^3/uL Lymphocytes # (Auto) 2.5 1.0-4.0 10^3/uL Monocytes # (Auto) 1.2 H 0.0-1.0 10^3/uL Eosinophils # (Auto) 0.0 0.0-0.3 10^3/uL Basophils # (Auto) 0.0 0.0-0.1 10^3/uL Immature Granulocyte # (Auto) 0.1 0.0-0.1 10^3/uL Neutrophils % (Manual) 65 % Lymphocytes % (Manual) 20 % Monocytes % (Manual) 7 % Eosinophils % (Manual) 1 % Band Neutrophils 6 % Atypical Lymphocytes 1 % Blood Morphology Comment NORMAL Sodium Level 130 L 135-145 MMOL/L Potassium Level 3.8 3.6-5.0 MMOL/L Chloride Level 98 98-107 MMOL/L Carbon Dioxide Level 20 L 21-32 MMOL/L Anion Gap 12 5-14 MMOL/L Blood Urea Nitrogen 14 7-18 MG/DL Creatinine 0.72 0.60-1.30 MG/DL Estimat Glomerular Filtration Rate 106 BUN/Creatinine Ratio 19 Glucose Level 214 H 70-105 MG/DL Calcium Level 9.0 8.5-10.1 MG/DL Corrected Calcium 9.6 8.5-10.1 MG/DL Magnesium Level 1.8 1.6-2.4 MG/DL Total Bilirubin 0.8 0.1-1.0 MG/DL Aspartate Amino Transf (AST/SGOT) 27 5-34 U/L Alanine Aminotransferase (ALT/SGPT) 22 0-55 U/L Alkaline Phosphatase 75 40-136 U/L C-Reactive Protein High Sensitivity 9.57 H 0.00-0.50 MG/DL Total Protein 7.6 6.4-8.2 GM/DL Albumin 3.3 3.2-4.5 GM/DL Urine Color YELLOW Urine Clarity CLEAR Urine pH 6.0 5-9 Urine Specific [place] 1.015 L 1.016-1.022 Urine Protein NEGATIVE NEGATIVE Urine Glucose (UA) NEGATIVE NEGATIVE Urine Ketones NEGATIVE NEGATIVE Urine Nitrite NEGATIVE NEGATIVE Urine Bilirubin NEGATIVE NEGATIVE Urine Urobilinogen 1.0 < = 1.0 MG/DL Urine Leukocyte Esterase TRACE H NEGATIVE Urine RBC (Auto) NEGATIVE NEGATIVE Urine RBC 2-5 H /HPF Urine WBC 5-10 H /HPF Urine Squamous Epithelial Cells 0-2 /HPF Urine Crystals PRESENT H /LPF Urine Amorphous Sediment FEW EVELINA URATES H /LPF Urine Bacteria FEW H /HPF Urine Casts NONE /LPF Urine Mucus SMALL H /LPF Urine Culture Indicated YES (GIACOMO GORDON) My Orders Orders - GIACOMO GORDON Ua Culture If Indicated (09/30/21 08:52) Cbc With Automated Diff (09/30/21 08:52) Comprehensive Metabolic Panel (09/30/21 08:52) Hs C Reactive Protein (09/30/21 08:52) Chest 1 View, Ap/Pa Only (09/30/21 08:52) Covid 19 Inhouse Test (09/30/21 08:52) Influenza A And B By Pcr (09/30/21 08:52) Magnesium (09/30/21 08:52) Blood Culture (09/30/21 09:04) Ed Iv/Invasive Line Start (09/30/21 09:04) Ns Iv 1000 Ml (Sodium Chloride 0.9%) (09/30/21 09:15) Ceftriaxone 1 Gm Pre-Mix (Rocephin 1 Gm (09/30/21 09:15) Manual Differential (09/30/21 08:56) Urine Culture (09/30/21 09:30) (GIACOMO GORDON) Medications Given in ED Current Medications Medications Dose Ordered Sig/Angelica Route Start Time Stop Time Status Last Admin Dose Admin Ceftriaxone Sodium/Dextrose 50 ml @ 100 mls/hr ONCE ONCE IV 09/30/21 09:15 09/30/21 09:44 DC 09/30/21 09:33 100 MLS/HR (GIACOMO GORDON) Vital Signs/I&O 09/30/21 08:30 Temp 36.7 Pulse 90 Resp 18 B/P (MAP) 134/69 (90) Pulse Ox 95 O2 Delivery Nasal Cannula (GIACOMO GORDON) Vital Signs/I&O Capillary Refill : (LYNN,KAYLEEN MED STUDENT) Progress Note : Time: 09:14 Progress Note I attest that I saw this patient alongside the medical student and agree with his documented history, physical exam and review of systems except as otherwise noted. Patient does not have septic vital signs however we will collect some blood cultures as he is having some chills and general malaise. We will collect a Covid and influenza swab which was negative earlier in the month. We will collect some urine and urine cultures. Gram of Rocephin for presumptive urinary tract/prostatitis. He is not having significant pain. He has a nonsurgical, soft abdomen. (GIACOMO GORDON) Diagnostic Imaging Diagonstic Imaging: Xray Plain Films/CT/US/NM/MRI: chest Comments NAME: GINO ESTRELLA MED REC#: [id number] PT STATUS: REG ER : 1945 PHYSICIAN: GIACOMO GORDON MD ADMIT DATE: 09/30/21/ER Draft Date of Exam:09/30/21 CHEST 1 VIEW, AP/PA ONLY INDICATION: Shortness of air. UTI. COMPARISON: 12/10/2019 FINDINGS: Single frontal radiographic view of the chest was obtained and demonstrates mild cardiomegaly and prominence of pulmonary vasculature. There is also mild diffuse prominence of the interstitium. There is no large effusion or pneumothorax. Osseous structures show no acute abnormalities. IMPRESSION: 1. Cardiomegaly with sequela of CHF including probable interstitial pulmonary edema. Dictated on workstation # [id number] Dict: 09/30/21 1004 Trans: 09/30/21 1009 [id number] Interpreted by: GLORIA AMARAL MD Electronically signed by: Reviewed: Reviewed by Me (GIACOMO GORDON) Departure Impression Primary Impression: Urinary tract infection Qualified Codes: N30.00 - Acute cystitis without hematuria Disposition: HOME, SELF-CARE Condition: Stable Departure-Patient Inst. Decision time for Depature: 10:24 (GIACOMO GORDON) Referrals: [facility] (PCP/Family) Primary Care Physician FLORA BULLOCK MD Patient Instructions: Urinary Tract Infection, Adult (DC) Add. Discharge Instructions: Drink lots of water over the next week or so. Probiotics 1 capsule twice a day. Cefdinir 1 capsule twice a day for the next 7 days. If you are not seeing improvement in your symptoms then you need to follow-up with your primary care doctor or Dr. Guzman, urology. If your symptoms are significantly worsening then I encourage you to follow-up in the ER. Scripts Cefdinir (Cefdinir) 300 Mg Capsule 300 MG PO BID for 7 Days, #14 CAP 0 Refills Prov: GIACOMO GORDON 09/30/21 Copy Copies To 1: FLORA BULLOCK MD [facility] STUDENT Sep 30, 2021 09:00 GIACOMO GORDON Sep 30, 2021 09:15
[2021-09-30 09:11] LABS: ALBUMIN 3.3 GM/DL (3.2-4.5); BASOPHILS % (AUTO) 0 % (0-10); EOSINOPHILS % (AUTO) 0 % (0-10); HEMATOCRIT 44 % (40-54); HEMOGLOBIN 14.8 g/dL (13.3-17.7); LYMPHOCYTES # (AUTO) 2.5 10^3/uL (1.0-4.0); LYMPHOCYTES % (AUTO) 14 % (12-44); MEAN CORPUSCULAR HEMOGLOBIN 30 pg (25-34); MEAN CORPUSCULAR HGB CONC 34 g/dL (32-36); MEAN CORPUSCULAR VOLUME 90 fL (80-99); MEAN PLATELET VOLUME 9.5 fL (9.0-12.2); MONOCYTES # (AUTO) 1.2 10^3/uL (0.0-1.0); MONOCYTES % (AUTO) 7 % (0-12); NEUTROPHILS # (AUTO) 13.2 10^3/uL (1.8-7.8); NEUTROPHILS % (AUTO) 78 % (42-75); PLATELET COUNT 201 10^3/uL (130-400); POTASSIUM 3.8 MMOL/L (3.6-5.0)
[2021-09-30 09:13] LABS: TOTAL PROTEIN 7.6 GM/DL (6.4-8.2)
[2021-09-30 09:15] LABS: BILIRUBIN,TOTAL 0.8 MG/DL (0.1-1.0)
[2021-09-30] MEDS ORDERED: NS IV 1000 ML 1,000 ML IV SCH (09:15)
[2021-09-30] MEDS ORDERED: cefTRIAXone 1 GM PRE-MIX 50 ML IV ONE (09:15)
[2021-09-30 09:17] LABS: CREATININE SERUM 0.72 MG/DL (0.60-1.30)
[2021-09-30 09:20] LABS: MAGNESIUM 1.8 MG/DL (1.6-2.4)
[2021-09-30 09:24] LABS: BAND NEUTROPHILS 6 %; EOSINOPHILS % (MANUAL) 1 %; LYMPHOCYTES % (MANUAL) 20 %; MONOCYTES % (MANUAL) 7 %; NEUTROPHILS % (MANUAL) 65 %
[2021-09-30 09:25] LABS: ATYPICAL LYMPHOCYTES 1 %; RBC MORPH NORMAL
[2021-09-30 09:38] LABS: BILIRUBIN,URINE NEGATIVE (NEGATIVE); CLARITY,URINE CLEAR; COLOR,URINE YELLOW; GLUCOSE, URINE (UA) NEGATIVE (NEGATIVE); KETONES,URINE NEGATIVE (NEGATIVE); LEUKOCYTE ESTERASE ,URINE TRACE (NEGATIVE); NITRITE,URINE NEGATIVE (NEGATIVE); PROTEIN,URINE NEGATIVE (NEGATIVE)
[2021-09-30 09:48] LABS: AMORPHOUS SEDIMENT,UR FEW AMOR URATES /LPF; BACTERIA,URINE FEW /HPF; SQUAMOUS EPITHELIAL CELL,UR 0-2 /HPF
--- NOTE | 2021-09-30 10:09 | Diagnostic Imaging Report ---
INDICATION: Shortness of air. UTI. COMPARISON: 12/10/2019 FINDINGS: Single frontal radiographic view of the chest was obtained and demonstrates mild cardiomegaly and prominence of pulmonary vasculature. There is also mild diffuse prominence of the interstitium. There is no large effusion or pneumothorax. Osseous structures show no acute abnormalities. IMPRESSION: 1. Cardiomegaly with sequela of CHF including probable interstitial pulmonary edema. Dictated by: Dictated on workstation # [id number]
[2021-09-30] MEDS ORDERED: CEFD300C3 PO (10:25)
[2021-09-30 10:48] VITALS: BP 123/64
== END 2021-09-30 10:48 | disposition home or self-care (01) ==
LOC: EDUNIT# 08:29 → ER 08:32
DX: N39.0 Urinary tract infection, site not specified (principal); I10 Essential (primary) hypertension; E78.00 Pure hypercholesterolemia, unspecified; E11.9 Type 2 diabetes mellitus without complications; Z20.822 Contact with and (suspected) exposure to COVID-19; Z79.899 Other long term (current) drug therapy
CPT/HCPCS: 36415; 71045; 80053; 81000; 83735; 85007; 85027; 86141; 87040; 87077; 87088; 87186; 87636

== ENCOUNTER 2021-10-11 02:53 | Inpatient (IN) | payer MEDICARE ==
[~2021-10-11] VITALS: Ht 182.8 cm; Wt 103.8 kg
[~2021-10-11 02:53] MED LIST changes: +CEFD300C3 PO
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
[2021-10-11] MEDS ORDERED: cefTRIAXone 1 GM PRE-MIX 50 ML IV ONE (03:15)
[2021-10-11] MEDS ORDERED: AZITHROMYCIN INJECTION 500 MG in NS (IVPB) 250 ML IV ONE (03:15)
[2021-10-11] MEDS ORDERED: NS IV 1000 ML 1,000 ML IV SCH ×3 (03:15→07:15)
[2021-10-11 03:20] LABS: ABG BASE EXCESS -0.3 MMOL/L (-2.5-2.5); ABG OXYGEN SATURATION 94 % (94-100); ABG PCO2 31 MMHG (35-45); ABG PH 7.48 (7.37-7.43); ABG PO2 70 MMHG (79-93); ABG TCO2 23.7 MMOL/L (21.0-31.0); ALLENS TEST YES-POS; INSPIRED O2 ROOM AIR
[2021-10-11 03:21] LABS: BASOPHILS % (AUTO) 0 % (0-10); EOSINOPHILS # (AUTO) 0.1 10^3/uL (0.0-0.3); EOSINOPHILS % (AUTO) 1 % (0-10); HEMATOCRIT 40 % (40-54); HEMOGLOBIN 13.6 g/dL (13.3-17.7); LYMPHOCYTES # (AUTO) 1.4 10^3/uL (1.0-4.0); LYMPHOCYTES % (AUTO) 12 % (12-44); MEAN CORPUSCULAR HEMOGLOBIN 30 pg (25-34); MEAN CORPUSCULAR HGB CONC 34 g/dL (32-36); MEAN CORPUSCULAR VOLUME 89 fL (80-99); MEAN PLATELET VOLUME 9.1 fL (9.0-12.2); MONOCYTES % (AUTO) 9 % (0-12); NEUTROPHILS # (AUTO) 9.1 10^3/uL (1.8-7.8); NEUTROPHILS % (AUTO) 78 % (42-75); PATIENT TEMP 37.3; PLATELET COUNT 294 10^3/uL (130-400); VENTILATOR NO; WHITE BLOOD COUNT 11.7 10^3/uL (4.3-11.0)
[2021-10-11 03:32] LABS: ALBUMIN 3.1 GM/DL (3.2-4.5); CHLORIDE 98 MMOL/L (98-107); POTASSIUM 4.2 MMOL/L (3.6-5.0); SODIUM 129 MMOL/L (135-145)
[2021-10-11 03:33] LABS: CALCIUM 8.7 MG/DL (8.5-10.1)
[2021-10-11 03:34] LABS: GLUCOSE 161 MG/DL (70-105); TOTAL PROTEIN 7.4 GM/DL (6.4-8.2)
[2021-10-11 03:35] LABS: CARBON DIOXIDE 20 MMOL/L (21-32)
[2021-10-11 03:36] LABS: BILIRUBIN,TOTAL 0.8 MG/DL (0.1-1.0); FIBRIN DEGRADATION PRODUCTS 1.01 UG/ML (0.00-0.49); INR 1.1 (0.8-1.4); PROTHROMBIN TIME PATIENT 14.5 SEC (12.2-14.7)
[2021-10-11 03:38] LABS: ALKALINE PHOSPHATASE 77 U/L (40-136); CREATININE SERUM 0.65 MG/DL (0.60-1.30); GFR ESTIMATED 119
[2021-10-11 03:39] LABS: BUN/CREATININE RATIO 12
[2021-10-11 03:41] LABS: ALANINE AMINOTRANSFERASE 23 U/L (0-55)
[2021-10-11 03:50] LABS: BILIRUBIN,URINE NEGATIVE (NEGATIVE); CLARITY,URINE CLEAR; COLOR,URINE YELLOW; GLUCOSE, URINE (UA) NEGATIVE (NEGATIVE); KETONES,URINE NEGATIVE (NEGATIVE); LEUKOCYTE ESTERASE ,URINE NEGATIVE (NEGATIVE); NITRITE,URINE NEGATIVE (NEGATIVE); PROTEIN,URINE NEGATIVE (NEGATIVE)
[2021-10-11 03:59] LABS: BACTERIA,URINE TRACE /HPF; SQUAMOUS EPITHELIAL CELL,UR 0-2 /HPF
--- NOTE | 2021-10-11 05:21 | Diagnostic Imaging Report ---
PROCEDURE: CT angiography of the chest with contrast. TECHNIQUE: Multiple contiguous axial images were obtained through the chest after uneventful bolus administration of intravenous contrast. 3D reconstructed CTA MIP acquisitions were also performed. Auto Exposure Controls were utilized during the CT exam to meet ALARA standards for radiation dose reduction. INDICATION: 76-year-old male, shortness of air. CORRELATION: 09/23/2018 FINDINGS: Heart size is enlarged but without disproportionate right heart strain. The thoracic aorta with mild atherosclerotic change. No aneurysm or evidence for dissection. No large central pulmonary embolism with central pulmonary arteries mildly prominent. Smaller peripheral emboli could easily go undetected on this study. Mildly prominent mediastinal and hilar lymph nodes. Overall do appear to be slightly larger. Right subcarinal region up to 2 cm. Small esophageal hernia. Azygos vein distended. Scattered bilateral pulmonary infiltrate-like opacities particularly at the lung bases but also involving portions of the upper lobe. Trace pleural effusions. No pneumothorax. 2.1 cm low-density mass left kidney favors probable cyst. Bridging osteophytes present. No acute bony abnormality. IMPRESSION: 1. No CT evidence for pulmonary embolism. Smaller peripheral emboli could go undetected. Prominent central pulmonary arteries could be reflective of underlying pulmonary arterial hypertension. 2. Cardiac enlargement with distention of the azygos vein and small effusions suspect for component of fluid overload. 3. Prominent interstitial markings may be reflective of chronic lung disease, progressed in severity. Underlying edema and/or superimposed pneumonia is not excluded. 4. Increasing size of mediastinal and hilar lymph nodes. Could be owing to chronic lung disease. Would, however, recommend short-term follow-up repeat imaging for reassessment. Dictated by: Dictated on workstation # [id number]
--- NOTE | 2021-10-11 05:21 | Diagnostic Imaging Report ---
INDICATION: Shortness of air. TECHNIQUE: Single view chest 4:13 AM. CORRELATION STUDY: 09/30/2021 FINDINGS: Heart size enlarged with component of mild vascular congestion. Prominent interstitial markings particularly in the mid and lower lung bailey. Overall slightly increased from prior. IMPRESSION: 1. Cardiac enlargement with component of pulmonary vascular congestion. Probable component of interstitial edema versus chronic lung disease. Dictated by: Dictated on workstation # [id number]
--- NOTE | 2021-10-11 07:11 | History & Physical-Hospitalist ---
History of Present Illness HPI/Chief Complaint Chief complaint: Shortness of breath History of present illness: This is a 76-year-old white male clinic patient of [facility] who presented to the ER with shortness of breath fever and malaise. He reports that he has been sick for 6 weeks and has had 2 rounds of azithromycin. Patient has a history of pulmonary fibrosis. He has had a 20 pound weight loss recently. 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 He will need oxygen supplementation IV antibiotics for pneumonia and close monitoring. Source: patient Exam Limitations: no limitations Date Seen 10/11/21 Time Seen by a Provider: 10:00 Attending Physician Kandice Tong DO [facility] Referring Physician Date of Admission Oct 11, 2021 at 05:46 Home Medications & Allergies Home Medications Reviewed patient Home Medication Reconciliation performed by pharmacy medication reconciliations metallurgical engineering technician and/or nursing. Patients Allergies have been reviewed. Allergies Allergies Coded Allergies No Known Drug Allergies (Lfkfqyihpe23/6/18) Past Hcyfsde-Lxfsyb-Mtglea Hx Patient Social History Marrital Status: Employed/Student: employed Tobacco Use?: No Smoking Status: Former Smoker Use of E-Cig and/or Vaping dev: No Substance use?: No Alcohol Use?: No Pt feels they are or have been: No Seasonal Allergies Seasonal Allergies: Yes Current Status Advance Directives: No Communicates: Verbally Primary Language: Andorran Preferred Spoken Language: Andorran Past Medical History Surgeries: Abdominal, Appendectomy, Orthopedic Pulmonary Fibrosis High Cholesterol, Hypertension Prostate Problems Blood Disorders: No Review of Systems Constitutional: see HPI, dizziness, fever, malaise, weakness, weight loss EENTM: no symptoms reported Respiratory: dyspnea on exertion, short of breath, wheezing Cardiovascular: no symptoms reported Gastrointestinal: no symptoms reported Genitourinary: no symptoms reported Musculoskeletal: no symptoms reported Skin: no symptoms reported Psychiatric/Neurological: No Symptoms Reported All Other Systems Reviewed Negative Unless Noted: Yes Physical Exam Physical Exam Vital Signs Vital Signs - First Documented 10/11/21 10/11/21 02:55 08:00 Temp 37.3 Pulse 87 Resp 20 B/P (MAP) 126/77 (93) Pulse Ox 93 O2 Delivery Room Air O2 Flow Rate 2.00 Capillary Refill : Less Than 3 Seconds Height, Weight, BMI Height: 6'0" Weight: 238lbs. 0oz. 107.875399he; 29.00 BMI Method:Stated General Appearance: Anxious, Chronically ill, Mild Distress Eyes: Right Eye Normal Inspection, Right Eye PERRL HEENT: PERRL/EOMI, Normal ENT Inspection, Pharynx Normal, Moist Mucous Membranes Neck: Full Range of Motion, Normal Inspection, Non Tender Respiratory: Chest Non Tender, Lungs Clear, No Accessory Muscle Use, No Respiratory Distress, Decreased Breath Sounds Cardiovascular: Regular Rate, Rhythm, No Edema, No Gallop, No JVD, No Murmur, Normal Peripheral Pulses Gastrointestinal: Normal Bowel Sounds, No Organomegaly, No Pulsatile Mass, Non Tender, Soft Back: Normal Inspection, No CVA Tenderness, No Vertebral Tenderness Extremity: Normal Capillary Refill, Normal Inspection, Normal Range of Motion, Non Tender, No Calf Tenderness, No Pedal Edema Neurologic/Psychiatric: Alert, Oriented x3, No Motor/Sensory Deficits, Normal Mood/Affect Skin: Normal Color, Warm/Dry Lymphatic: No Adenopathy Results Results/Procedures Labs Laboratory Tests 10/11/21 03:10 Patient resulted labs reviewed. Assessment/Plan Admission Diagnosis Assessment: Sepsis Pneumonia Acute hypoxic respiratory failure Pulmonary fibrosis Hypertension Hyperlipidemia Recent 20 pound weight loss Plan: Antibiotics Gentle IV fluids PT and OT Oxygen Admission Status: Inpatient Order (span 2 midnights) Reason for Inpatient Admission: Acute hypoxic respiratory failure Diagnosis/Problems Diagnosis/Problems (1) Acute respiratory failure with hypoxemia Status: Acute (2) Pneumonia Status: Acute Qualifiers: Pneumonia type: due to unspecified organism Laterality: unspecified laterality Lung location: unspecified part of lung Qualified Codes: J18.9 - Pneumonia, unspecified organism (3) History of pulmonary fibrosis Status: Acute (4) Sepsis Status: Acute Qualifiers: Sepsis type: sepsis due to unspecified organism Sepsis acute organ dysfunction status: with acute organ dysfunction Severe sepsis acute organ dysfunction type: acute respiratory failure Acute respiratory failure type: with hypoxia Severe sepsis shock status: without septic shock Qualified Codes: A41.9 - Sepsis, unspecified organism; R65.20 - Severe sepsis without septic shock; J96.01 - Acute respiratory failure with hypoxia KANDICE TONG DO Oct 11, 2021 07:11
[2021-10-11] MEDS ORDERED: morphine INJ 4 MG/ML 1 ML (VIAL/SYRINGE) IV PRN (07:15)
[2021-10-11] MEDS ORDERED: MILK OF MAGNESIA 400 MG/5 ML 30 ML UDC PO PRN (07:15)
[2021-10-11] MEDS ORDERED: diphenhydrAMINE 50 MG/ML INJ (BENADRYL) IVP PRN (07:15)
[2021-10-11] MEDS ORDERED: diphenhydrAMINE 25 MG TAB (BENADRYL) PO PRN (07:15)
[2021-10-11] MEDS ORDERED: NALOXONE 0.4 MG/ML 1 ML (NARCAN) VIAL IV PRN (07:15)
[2021-10-11] MEDS ORDERED: polyethylene glycoL POWDER 17 GM (MIRALAX) PACK PO PRN (07:15)
[2021-10-11] MEDS ORDERED: BISACODYL 10 MG SUPP (DULCOLAX) PR PRN (07:15)
[2021-10-11] MEDS ORDERED: LOPERAMIDE 2 MG (IMODIUM) TABLET PO PRN (07:15)
[2021-10-11] MEDS ORDERED: LACTULOSE SYRUP 10GM/15ML (ENULOSE) 30ML UDC PO PRN (07:15)
[2021-10-11] MEDS ORDERED: ONDANSETRON 4 MG/2 ML (SDV) Z0FRAN IV PRN (07:15)
[2021-10-11] MEDS ORDERED: MELATONIN 3 MG TABLET PO PRN (07:15)
[2021-10-11] MEDS ORDERED: ONDANSETRON 4 MG (ZOFRAN) ORAL DISSOLVE TAB PO PRN (07:15)
[2021-10-11] MEDS ORDERED: CALCIUM CARBONATE 500 MG (TUMS) TAB.CHEW PO PRN (07:15)
[2021-10-11] MEDS ORDERED: ACETAMINOPHEN 325 MG TABLET PO PRN (07:15)
[2021-10-11] MEDS ORDERED: HYDROcodone/APAP 5 MG/325 MG (LORTAB) TAB PO PRN (07:15)
[2021-10-11] MEDS ORDERED: ANTACID SUSP 30 ML UDC (MYLANTA) PO PRN (07:15)
[2021-10-11 08:00] VITALS: BP 124/58
[2021-10-11] MEDS: ENOXAPARIN 40 MG/0.4 ML (LOVENOX) SYR SC SCH (08:45)
[2021-10-11] MEDS: CEFEPIME INJECTION 2,000 MG in NS (IVPB) 50 ML IV SCH ×2 (08:46→21:11)
[2021-10-11] MEDS: DOCUSATE SODIUM 100 MG (COLACE) CAP PO SCH ×2 (08:46→21:12)
[2021-10-11] MEDS: SENNOSIDES 8.6 MG (SENOKOT) TAB PO SCH ×2 (08:46→21:11)
[2021-10-11 10:21] VITALS: BP 124/58
[2021-10-11] MEDS: RT-ALBUTEROL/IPRATROPIUM 3 ML (DUONEB) VIAL INH SCH ×4 (11:24→21:39)
[2021-10-11 12:00] VITALS: BP 128/59
[2021-10-11] MEDS: inSUlin ASPART (NovoLOG) 1 UNIT/0.01 ML (CHARGE PER UNIT) SC SCH ×3 (12:56→21:11)
[2021-10-11] MEDS: methylPREDNISolone 40 MG/ML (Solu-MEDROL) VIAL IV SCH ×2 (12:56→18:51)
[2021-10-11 15:32] VITALS: BP 128/62
[2021-10-11 19:07] VITALS: BP 131/67
[2021-10-11] MEDS: MONTELUKAST 10 MG (SINGULAIR) TAB PO SCH (21:11)
[2021-10-12] VITALS: BP 120/70
[2021-10-12] MEDS: RT-ALBUTEROL/IPRATROPIUM 3 ML (DUONEB) VIAL INH SCH ×5 (02:49→18:26)
[2021-10-12 04:00] VITALS: BP 117/66
[2021-10-12 06:12] LABS: BASOPHILS % (AUTO) 0 % (0-10); EOSINOPHILS % (AUTO) 0 % (0-10); HEMATOCRIT 40 % (40-54); HEMOGLOBIN 13.2 g/dL (13.3-17.7); LYMPHOCYTES # (AUTO) 0.7 10^3/uL (1.0-4.0); LYMPHOCYTES % (AUTO) 10 % (12-44); MEAN CORPUSCULAR HEMOGLOBIN 30 pg (25-34); MEAN CORPUSCULAR HGB CONC 33 g/dL (32-36); MEAN CORPUSCULAR VOLUME 91 fL (80-99); MEAN PLATELET VOLUME 9.4 fL (9.0-12.2); MONOCYTES # (AUTO) 0.3 10^3/uL (0.0-1.0); MONOCYTES % (AUTO) 4 % (0-12); NEUTROPHILS # (AUTO) 6.4 10^3/uL (1.8-7.8); NEUTROPHILS % (AUTO) 86 % (42-75); PLATELET COUNT 299 10^3/uL (130-400); WHITE BLOOD COUNT 7.4 10^3/uL (4.3-11.0)
[2021-10-12 06:33] LABS: ALBUMIN 3.1 GM/DL (3.2-4.5); POTASSIUM 3.8 MMOL/L (3.6-5.0)
[2021-10-12 06:36] LABS: TOTAL PROTEIN 7.3 GM/DL (6.4-8.2)
[2021-10-12 06:38] LABS: BILIRUBIN,TOTAL 0.3 MG/DL (0.1-1.0)
[2021-10-12] MEDS: ENOXAPARIN 40 MG/0.4 ML (LOVENOX) SYR SC SCH (06:38)
[2021-10-12] MEDS: methylPREDNISolone 40 MG/ML (Solu-MEDROL) VIAL IV SCH ×5 (06:38→23:20)
[2021-10-12 06:39] LABS: CREATININE SERUM 0.73 MG/DL (0.60-1.30)
[2021-10-12] MEDS: inSUlin ASPART (NovoLOG) 1 UNIT/0.01 ML (CHARGE PER UNIT) SC SCH ×7 (06:39→21:55)
--- NOTE | 2021-10-12 06:58 | Progress Note - Hospitalist ---
Subjective HPI/CC On Admission Date Seen by Provider: Oct 12, 2021 Time Seen by Provider: 11:00 Chief complaint: Shortness of breath History of present illness: This is a 76-year-old white male clinic patient of [facility] who presented to the ER with shortness of breath fever and malaise. He reports that he has been sick for 6 weeks and has had 2 rounds of azithromycin. Patient has a history of pulmonary fibrosis. He has had a 20 pound weight loss recently. 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 He will need oxygen supplementation IV antibiotics for pneumonia and close monitoring. Subjective/Events-last exam Patient doing a lot better at bedside Updated me on his ER in urgent care courses prior to admit Blood cultures show Enterococcus so I added vancomycin and told him that Checked meds and labs Review of Systems General: Fatigue, Malaise Focused Exam Lactate Level 10/11/21 03:10: Lactic Acid Level 2.39*H 10/11/21 05:52: Lactic Acid Level 1.60 Time of Focused Exam: 05:42 Objective Exam Vital Signs Vital Signs Date Time Temp Pulse Resp B/P (MAP) Pulse Ox O2 Delivery O2 Flow Rate FiO2 10/12/21 16:11 36.6 86 18 125/67 (86) 92 Room Air 10/12/21 10:43 0.00 Capillary Refill : Less Than 3 Seconds General Appearance: No Apparent Distress, WD/WN, Chronically ill Respiratory: Lungs Clear, Normal Breath Sounds, Decreased Breath Sounds Cardiovascular: Regular Rate, Rhythm Neurologic/Psychiatric: Alert, Oriented x3, No Motor/Sensory Deficits, Normal Mood/Affect Results/Procedures Lab Laboratory Tests 10/12/21 05:57 Patient resulted labs reviewed. Assessment/Plan Assessment and Plan Assess & Plan/Chief Complaint Assessment: Sepsis Pneumonia Enterococcus bacteremia placed on Vanco on 10/12/2021 Acute hypoxic respiratory failure Pulmonary fibrosis Hypertension Hyperlipidemia Recent 20 pound weight loss Plan: Antibiotics Gentle IV fluids PT and OT Oxygen 10/12/2021: Vancomycin Cefepime Diagnosis/Problems Diagnosis/Problems (1) Acute respiratory failure with hypoxemia Status: Acute (2) Pneumonia Status: Acute Qualifiers: Pneumonia type: due to unspecified organism Laterality: unspecified laterality Lung location: unspecified part of lung Qualified Codes: J18.9 - Pneumonia, unspecified organism (3) History of pulmonary fibrosis Status: Acute (4) Sepsis Status: Acute Qualifiers: Sepsis type: sepsis due to unspecified organism Sepsis acute organ dysfunction status: with acute organ dysfunction Severe sepsis acute organ dysfunction type: acute respiratory failure Acute respiratory failure type: with hypoxia Severe sepsis shock status: without septic shock Qualified Codes: A41.9 - Sepsis, unspecified organism; R65.20 - Severe sepsis without septic shock; J96.01 - Acute respiratory failure with hypoxia NADIA WILSON DO Oct 12, 2021 06:58
[2021-10-12 07:34] VITALS: BP 146/64
[2021-10-12] MEDS: CEFEPIME INJECTION 2,000 MG in NS (IVPB) 50 ML IV SCH ×2 (09:07→21:54)
[2021-10-12] MEDS: DOCUSATE SODIUM 100 MG (COLACE) CAP PO SCH ×2 (09:08→21:54)
[2021-10-12] MEDS: SENNOSIDES 8.6 MG (SENOKOT) TAB PO SCH ×2 (09:08→21:54)
--- NOTE | 2021-10-12 09:43 | Diagnostic Imaging Report ---
Indication: Acute respiratory failure. Study compared 10/11/2021 Findings: Bilateral mid to lower lung interstitial infiltrates or edema have increased. Heart size upper limits but stable. No effusion or pneumothorax. Impression: Some progressive mid to lower lung bilateral interstitial opacities, similar mild cardiomegaly with no pleural fluid or pneumothorax. Dictated by: Dictated on workstation # [id number]
[2021-10-12 10:59] VITALS: BP 148/65
[2021-10-12] MEDS ORDERED: VANCOMYCIN INJECTION 0.1 MG in NS (IVPB) 250 ML IV SCH (11:45)
[2021-10-12] MEDS: VANCOMYCIN 2000 MG/NS 500 ML IVPB IV SCH ×2 (12:15)
[2021-10-12] MEDS ORDERED: inSUlin (REGULAR) HUMAN 1 UNIT/0.01 ML (CHARGE PER UNIT) SC PRN (12:15)
[2021-10-12 16:11] VITALS: BP 125/67
[2021-10-12 20:00] VITALS: BP 140/77
[2021-10-12] MEDS ORDERED: NS (IVPB) 250 ML ONE (21:29)
[2021-10-12] MEDS: MONTELUKAST 10 MG (SINGULAIR) TAB PO SCH (21:54)
[2021-10-13] VITALS (8 sets, daily range): BP systolic 102–158; BP diastolic 58–83
[2021-10-13] MEDS ORDERED: RT-ALBUTEROL HFA 8.5 GM INHALER IH SCH (02:00)
[2021-10-13] MEDS ORDERED: RT-ALBUTEROL/IPRATROPIUM 3 ML (DUONEB) VIAL INH SCH (06:00)
[2021-10-13 06:07] LABS: BASOPHILS % (AUTO) 0 % (0-10); EOSINOPHILS % (AUTO) 0 % (0-10); HEMATOCRIT 42 % (40-54); LYMPHOCYTES # (AUTO) 1.2 10^3/uL (1.0-4.0); LYMPHOCYTES % (AUTO) 6 % (12-44); MEAN CORPUSCULAR HEMOGLOBIN 30 pg (25-34); MEAN CORPUSCULAR HGB CONC 34 g/dL (32-36); MEAN CORPUSCULAR VOLUME 89 fL (80-99); MEAN PLATELET VOLUME 9.5 fL (9.0-12.2); MONOCYTES # (AUTO) 0.6 10^3/uL (0.0-1.0); MONOCYTES % (AUTO) 3 % (0-12); NEUTROPHILS # (AUTO) 19.1 10^3/uL (1.8-7.8); NEUTROPHILS % (AUTO) 91 % (42-75); PLATELET COUNT 346 10^3/uL (130-400); WHITE BLOOD COUNT 21.1 10^3/uL (4.3-11.0)
[2021-10-13] MEDS: ENOXAPARIN 40 MG/0.4 ML (LOVENOX) SYR SC SCH (06:27)
[2021-10-13] MEDS: methylPREDNISolone 40 MG/ML (Solu-MEDROL) VIAL IV SCH ×2 (06:27→20:42)
[2021-10-13] MEDS: inSUlin ASPART (NovoLOG) 1 UNIT/0.01 ML (CHARGE PER UNIT) SC SCH ×7 (06:31→20:43)
[2021-10-13 06:34] LABS: ALBUMIN 3.1 GM/DL (3.2-4.5); BILIRUBIN,TOTAL 0.4 MG/DL (0.1-1.0); CALCIUM 9.3 MG/DL (8.5-10.1); CREATININE SERUM 0.69 MG/DL (0.60-1.30); POTASSIUM 4.3 MMOL/L (3.6-5.0); TOTAL PROTEIN 7.3 GM/DL (6.4-8.2)
[2021-10-13 06:54] LABS: BAND NEUTROPHILS 1 %; LYMPHOCYTES % (MANUAL) 7 %; MONOCYTES % (MANUAL) 3 %; NEUTROPHILS % (MANUAL) 89 %; RBC MORPH NORMAL
--- NOTE | 2021-10-13 09:33 | Occupational Therapy Eval ---
OT Evaluation-General/PLF Medical Diagnosis Admission Date Oct 11, 2021 at 05:46 Medical Diagnosis: acute respiratory failure Onset Date: Oct 11, 2021 Therapy Diagnosis Therapy Diagnosis: n/a Height/Weight Height (Feet): 6 Height (Inches): 0 Weight (Pounds): 238 Weight (Ounces): 0 Precautions Precautions/Isolations: Standard Precautions Referral Physician: Ran Referral Reason: Evaluation/Treatment Medical History Additional Medical History pulmonary fibrosis, HTN, prostate problems. Current History ED due to SOB, fever, malaise Social History Home: Single Level Current Living Status: Spouse ADL-Prior Level of Function SCALE: Activities may be completed with or without assistive devices. 6-Epgecabvpc-dgtfrqz completes the activity by him/herself with no assistance from a helper. 5-Set-up or Clean-up Assistance-helper sets up or cleans up; patient completes activity. [place] assists only prior to or following the activity. 4-Supervision or Touching Assistance-helper provides verbal cues and/or touching/steadying and/or contact guard assistance as patient completes activity. Assistance may be provided throughout the activity or intermittently. 3-Partial/Moderate Assistance-helper does LESS THAN HALF the effort. [place] lifts, holds or supports trunk or limbs, but provides less than half the effort. 2-Substantial/Maximal Assistance-helper does MORE THAN HALF the effort. [place] lifts or holds trunk or limbs and provides more than half the effort. 5-Mhlhgvqbz-zqjuzx does ALL the effort. Patient does none of the effort to complete the activity. Or, the assistance of 2 or more helpers is required for the patient to complete the activity. If activity was not attempted, code reason: 7-Patient Refused. 9-Not Applicable-not attempted and the patient did not perform the activity before the current illness, exacerbation or injury. 10-Not Attempted due to Environmental Limitations-(lack of equipment, weather restraints, etc.). 88-Not Attempted due to Medical Conditions or Safety Concerns. ADL PLOF Comments Pt reports IND with ADLs and functional mobility at PLOF, no AE/AD. 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 Mental Status/Objective Patient Orientation: Person, Place, Time, Situation Current Hand Dominance: Right Upper Extremity ROM WFL Upper Extremity Coordination WFL Upper Extremity Sensation WFL Upper Extremity Strength WFL ADL-Treatment Eating (QC): 6 (IND with breakfast) Oral Hygiene (QC): 5 (per clincial judgment.) Toileting Hygiene (QC): 6 (Per pt report able to manage clothing and hygiene.) Other Treatments Pt laying in bed, agreeable to OT Tx. Pt provided information about PLOF and home set up. Pt indicates he is up in his room, typically calls for assistance due to new medication changes. Pt indicated he is able to toilet himself, and has not had LOB while up. Pt feels like he is at his PLOF and doesn't wish to have further OT services at this time. Pt's cell phone began to ring, pt requests to take phone call. Post tx, pt in bed, call light in reach and all needs met. Education OT Patient Education: Correct positioning, Modified ADL techniques, Progress toward Goal/Update tx plan, Purpose of tx/functional activities, Rehab process Teaching Recipient: Patient Teaching Methods: Discussion Response to Teaching: Verbalize Understanding OT Custodial Goals Lead Care Manager Goals 1=Demonstrate adherence to instructed precautions during ADL tasks. 2=Patient will verbalize/demonstrate understanding of assistive devices/modifications for ADL. 3=Patient will improve strength/tolerance for activity to enable patient to perform ADL's. OT Education/Plan Problem List/Assessment Assessment: No Skilled OT Needs ID'd No skilled OT services indicated at this time, as pt is at his PLOF, independent with ADLs, and doesn't want further OT services. D/C from OT. Discharge Recommendations Plan/Recommendations: Discharge/Goals Met Treatment Plan/Plan of Care Patient would benefit from OT for education, treatment and training to promote independence in ADL's, mobility, safety and/or upper extremity function for A DL's. Plan of Care: ADL Retraining, Functional Mobility Treatment Duration: Oct 13, 2021 Frequency: 1 time per week (eval only) Estimated Hrs Per Day: .25 hour per day Rehab Potential: Good Time/GCodes Start Time: 08:58 Stop Time: 09:08 Total Time Billed (hr/min): 10 Billed Treatment Time 1, GRIFFIN FAIRBANKS OT Oct 13, 2021 09:33
[2021-10-13] MEDS: DOCUSATE SODIUM 100 MG (COLACE) CAP PO SCH ×2 (09:54→20:44)
[2021-10-13] MEDS: SENNOSIDES 8.6 MG (SENOKOT) TAB PO SCH ×2 (09:54→20:43)
[2021-10-13] MEDS: CEFEPIME INJECTION 2,000 MG in NS (IVPB) 50 ML IV SCH ×2 (09:54→20:42)
[2021-10-13] MEDS ORDERED: RT-ALBUTEROL/IPRATROPIUM 3 ML (DUONEB) VIAL INH PRN (10:00)
--- NOTE | 2021-10-13 10:16 | Physical Therapy Evaluation ---
PT Evaluation-General Medical Diagnosis Admission Date Oct 11, 2021 at 05:46 Medical Diagnosis: acute respiratory failure Onset Date: Oct 11, 2021 Therapy Diagnosis Therapy Diagnosis: debility/weakness Height/Weight Height (Feet): 6 Height (Inches): 0 Weight (Pounds): 238 Weight (Ounces): 0 Precautions Precautions/Isolations: Standard Precautions Referral Physician: Ran Reason for Referral: Evaluation/Treatment Medical History Pertinent Medical History: DM, HTN Additional Medical History pulmonary fibrosis Current History EMS from ER in [place] due to hypoxia Reviewed History: Yes Social History Home: Single Level Current Living Status: Spouse Prior Prior Level of Function SCALE: Activities may be completed with or without assistive devices. 3-Whhlzfjbfz-uyplfqw completes the activity by him/herself with no assistance from a helper. 5-Set-up or Clean-up Assistance-helper sets up or cleans up; patient completes activity. [place] assists only prior to or following the activity. 4-Supervision or Touching Assistance-helper provides verbal cues and/or touching/steadying and/or contact guard assistance as patient completes activity . Assistance may be provided throughout the activity or intermittently. 3-Partial/Moderate Assistance-helper does LESS THAN HALF the effort. [place] lifts, holds or supports trunk or limbs, but provides less than half the effort. 2-Substantial/Maximal Assistance-helper does MORE THAN HALF the effort. [place] lifts or holds trunk or limbs and provides more than half the effort. 8-Dgietcswz-rjmasv does ALL the effort. Patient does none of the effort to complete the activity. Or, the assistance of 2 or more helpers is required for the patient to complete the activity. If activity was not attempted, code reason: 7-Patient Refused. 9-Not Applicable-not attempted and the patient did not perform the activity before the current illness, exacerbation or injury. 10-Not Attempted due to Environmental Limitations-(lack of equipment, weather restraints, etc.). 88-Not Attempted due to Medical Conditions or Safety Concerns. Bed Mobility: 6 Transfers (B,C,W/C): 6 Gait: 6 Stairs: 6 Indoor Mobility (Ambulation): Independent Stairs: Independent Prior Devices Use: None PT Evaluation-Current Subjective Patient agrees to PT. Objective Patient Orientation: Normal For Age ROM/Strength ROM Lower Extremities bilateral LE WFL (noted ER bilaterally) Strength Lower Extremities 4+/5 grossly bilateral LE Integumentary/Posture Integumentary refer to nursing notes Bowel Incontinence: No Bladder Incontinence: No Posture WFL Neuromuscular (Tone, Coordination, Reflexes) grossly intact Sensory Vision: Functional Hearing: Functional Hand Dominance: Right Transfers Roll Left to Right (QC): 6 Sit to Lying (QC): 6 Lying to Sitting/Side of Bed(Q: 6 Sit to Stand (QC): 6 Chair/Qfs-sl-Fhfva Xfer(QC): 6 Gait Does the Patient Walk?: Yes Mode of Locomotion: Walk Anticipated Mode of Locomotion: Walk Walk 10 feet (QC): 6 Walk 50 ft with 2 Turns(QC): 6 Walk 150 ft (QC): 6 Distance: 550' Gait Assistive Device: None Comments/Gait Description safe and functional with no deviation Balance Sitting Static: Normal Sitting Dynamic: Normal Standing Static: Normal Standing Dynamic: Normal Picking up an Object (QC): 6 Assessment/Needs 76 y.o. male, is currently at independent [facility] with all gross motor skills and does not require skilled PT intervention. Rehab Potential: Fair PT Plan Treatment/Plan Treatment Plan: Discontinue PT, goals met Treatment Duration: Oct 13, 2021 Frequency: 1 time per week Estimated Hrs Per Day: .25 hour per day Patient and/or Family Agrees t: Yes Time/GCodes Time In: 931 Time Out: 940 Total Billed Treatment Time: 9 Total Billed Treatment 1 visit EVModC 9 min [place] PT Oct 13, 2021 10:16
[2021-10-13] MEDS ORDERED: ATOR20TA66 PO (10:49)
[2021-10-13] MEDS ORDERED: ACET-2267 PO (10:56)
[2021-10-13] MEDS ORDERED: MULT-974 PO (10:57)
[2021-10-13] MEDS ORDERED: VITA100035 PO (10:58)
[2021-10-13] MEDS: VANCOMYCIN 2000 MG/NS 500 ML IVPB IV SCH ×2 (12:19)
--- NOTE | 2021-10-13 12:34 | Progress Note - Hospitalist ---
YUMIKO FRIEDMAN 10/13/21 1234: Subjective HPI/CC On Admission Date Seen by Provider: Oct 13, 2021 Time Seen by Provider: 08:30 Chief complaint: Shortness of breath History of present illness: This is a 76-year-old white male clinic patient of [facility] who presented to the ER with shortness of breath fever and malaise. He reports that he has been sick for 6 weeks and has had 2 rounds of azithromycin. Patient has a history of pulmonary fibrosis. He has had a 20 pound weight loss recently. 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 He will need oxygen supplementation IV antibiotics for pneumonia and close monitoring. Subjective/Events-last exam Patient states he feels okay today. His appetite is back. Patient has been up and walking. He has been having bowel movements and denies dysuria. Patient understands why he is still here and just wants us to do whatever we need to make sure he is safe to go home. Patient had blood drawn this morning for repeat testing. Patient has elevated white count, probably from steroids yesterday, will decrease dose. Patient is on room air. Review of Systems General: No Chills Pulmonary: No Dyspnea, No Cough Cardiovascular: No: Chest Pain, Palpitations Gastrointestinal: No: Nausea, Vomiting Genitourinary: No Dysuria Focused Exam Lactate Level 10/11/21 03:10: Lactic Acid Level 2.39*H 10/11/21 05:52: Lactic Acid Level 1.60 Time of Focused Exam: 05:42 Objective Exam Vital Signs Vital Signs Date Time Temp Pulse Resp B/P (MAP) Pulse Ox O2 Delivery O2 Flow Rate FiO2 10/13/21 11:49 36.5 95 20 157/83 (107) 95 Room Air 10/12/21 10:43 0.00 Capillary Refill : Less Than 3 Seconds General Appearance: No Apparent Distress, WD/WN Respiratory: Chest Non Tender, Lungs Clear, Normal Breath Sounds, No Accessory Muscle Use, No Respiratory Distress Cardiovascular: Regular Rate, Rhythm, Normal Peripheral Pulses Rectal: Deferred Extremity: No Pedal Edema Neurologic/Psychiatric: Alert, Oriented x3, Normal Mood/Affect Results/Procedures Lab Laboratory Tests 10/13/21 05:51 Patient resulted labs reviewed. Assessment/Plan Assessment and Plan Assess & Plan/Chief Complaint Assessment: Sepsis Pneumonia Enterococcus bacteremia placed on Vanco on 10/12/2021 Acute hypoxic respiratory failure Pulmonary fibrosis Hypertension Hyperlipidemia Recent 20 pound weight loss Plan: Antibiotics Gentle IV fluids PT and OT Oxygen 10/12/2021: Vancomycin Cefepime 10/13/2021: Continue Abx PT and OT Continue Monitoring awaiting results of blood test KANDICE WILSON DO 10/14/21 0521: Subjective Subjective/Events-last exam Pt doing a lot better WBC count 21,000 will decrease IV steroids to 40mg IV Q 12 hrs Vancomycin maintaied for enterococcus bacteremia PT and OT working with him Overall feels much better Review of Systems General: Fatigue, Malaise Objective Exam General Appearance: No Apparent Distress, WD/WN, Chronically ill Respiratory: Lungs Clear, Normal Breath Sounds Cardiovascular: Regular Rate, Rhythm Neurologic/Psychiatric: Alert, Oriented x3 Assessment/Plan Assessment and Plan Assess & Plan/Chief Complaint Continue treatment Await blood culture sensitivity Supervisory-Addendum Brief Verification & Attestation Participated in pt care: history, MDM, physical Personally performed: exam, history, MDM, supervision of care Care discussed with: Medical Student Procedures: n/a Results interpretation: Verified all documentation Verification and Attestation of Medical Student E/M Service A medical student performed and documented this service in my presence. I reviewed and verified all information documented by the medical student and made modifications to such information, when appropriate. I personally performed the physical exam and medical decision making. Kandice Wilson, Oct 14, 2021,05:20 YUMIKO FRIEDMAN Oct 13, 2021 12:34 KANDICE WILSON DO Oct 14, 2021 05:21
[2021-10-13] MEDS: MONTELUKAST 10 MG (SINGULAIR) TAB PO SCH (20:42)
[2021-10-14] VITALS: BP 136/75
[2021-10-14 06:25] LABS: BASOPHILS % (AUTO) 0 % (0-10); EOSINOPHILS % (AUTO) 0 % (0-10); HEMATOCRIT 41 % (40-54); HEMOGLOBIN 13.9 g/dL (13.3-17.7); LYMPHOCYTES # (AUTO) 1.8 10^3/uL (1.0-4.0); LYMPHOCYTES % (AUTO) 12 % (12-44); MEAN CORPUSCULAR HEMOGLOBIN 30 pg (25-34); MEAN CORPUSCULAR HGB CONC 34 g/dL (32-36); MEAN CORPUSCULAR VOLUME 90 fL (80-99); MEAN PLATELET VOLUME 9.6 fL (9.0-12.2); MONOCYTES # (AUTO) 0.9 10^3/uL (0.0-1.0); MONOCYTES % (AUTO) 6 % (0-12); NEUTROPHILS # (AUTO) 12.3 10^3/uL (1.8-7.8); NEUTROPHILS % (AUTO) 82 % (42-75); PLATELET COUNT 347 10^3/uL (130-400); WHITE BLOOD COUNT 15.1 10^3/uL (4.3-11.0)
[2021-10-14 06:47] LABS: POTASSIUM 4.1 MMOL/L (3.6-5.0)
[2021-10-14 06:49] LABS: CALCIUM 8.8 MG/DL (8.5-10.1)
[2021-10-14 06:50] LABS: TOTAL PROTEIN 6.9 GM/DL (6.4-8.2)
[2021-10-14 06:51] LABS: BILIRUBIN,TOTAL 0.5 MG/DL (0.1-1.0)
[2021-10-14] MEDS: inSUlin ASPART (NovoLOG) 1 UNIT/0.01 ML (CHARGE PER UNIT) SC SCH ×2 (06:51→08:50)
[2021-10-14 06:53] LABS: CREATININE SERUM 0.65 MG/DL (0.60-1.30)
[2021-10-14] MEDS: ENOXAPARIN 40 MG/0.4 ML (LOVENOX) SYR SC SCH (06:54)
[2021-10-14 08:02] VITALS: BP 126/68
[2021-10-14] MEDS ORDERED: NS (IVPB) 0 ML ONE (08:52)
[2021-10-14] MEDS: methylPREDNISolone 40 MG/ML (Solu-MEDROL) VIAL IV SCH (08:55)
[2021-10-14] MEDS: DOCUSATE SODIUM 100 MG (COLACE) CAP PO SCH (08:56)
[2021-10-14] MEDS: SENNOSIDES 8.6 MG (SENOKOT) TAB PO SCH (08:56)
[2021-10-14] MEDS: CEFEPIME INJECTION 2,000 MG in NS (IVPB) 50 ML IV SCH (08:56)
[2021-10-14] MEDS ORDERED: MONT-40 PO (09:53)
[2021-10-14] MEDS ORDERED: PRED10TA22 PO (09:53)
[2021-10-14] MEDS ORDERED: AMOX-358 PO (09:53)
--- NOTE | 2021-10-14 09:53 | Discharge Summary ---
Discharge Summary Hospital Course Was the Problem List Reviewed?: Yes Problems/Dx: (1) Acute respiratory failure with hypoxemia Status: Acute (2) Pneumonia Status: Acute Qualifiers: Qualified Codes: J18.9 - Pneumonia, unspecified organism (3) History of pulmonary fibrosis Status: Acute (4) Sepsis Status: Acute Qualifiers: Qualified Codes: A41.9 - Sepsis, unspecified organism; R65.20 - Severe sepsi s without septic shock; J96.01 - Acute respiratory failure with hypoxia Hospital Course Date of Admission: Oct 11, 2021 at 05:46 Admission Diagnosis : Family Physician/Provider: Center/[facility] Date of Discharge: 10/14/21 Discharge Diagnosis: Acute hypoxic respiratory failure, exacerbation of COPD, pulmonary fibrosis, Enterococcus bacteremia Hospital Course: Hospital course: Pt had an uneventful hospital course for four days after he was admitted for pneumonia and acute hypoxic respiratory failure. He improved immensely with Cefepime, Enterococcus on blood culture was documented so Vancomycin was started. Pt was ultimately discharged on Augmentin for an addition ten days of 875 mg BID. Home oxygen on exertion of two liters was ordered at discharge and patient was deemed stable for discharge. Medication sent to [facility]. Labs and Pending Lab Test: Laboratory Tests 10/13/21 11:48: Glucometer 354H 10/13/21 16:46: Glucometer 178H 10/13/21 20:23: Glucometer 163H 10/14/21 06:16: White Blood Count 15.1H, Red Blood Count 4.60, Hemoglobin 13.9, Hematocrit 41, Mean Corpuscular Volume 90, Mean Corpuscular Hemoglobin 30, Mean Corpuscular Hemoglobin Concent 34, Red Cell Distribution Width 14.1, Platelet Count 347, Mean Platelet Volume 9.6, Immature Granulocyte % (Auto) 1, Neutrophils (%) (Auto) 82H, Lymphocytes (%) (Auto) 12, Monocytes (%) (Auto) 6, Eosinophils (%) (Auto) 0, Basophils (%) (Auto) 0, Neutrophils # (Auto) 12.3H, Lymphocytes # (Auto) 1.8, Monocytes # (Auto) 0.9, Eosinophils # (Auto) 0.0, Basophils # (Auto) 0.0, Immature Granulocyte # (Auto) 0.1, Sodium Level 139, Potassium Level 4.1, Chloride Level 106, Carbon Dioxide Level 23, Anion Gap 10, Blood Urea Nitrogen 18, Creatinine 0.65, Estimat Glomerular Filtration Rate 119, BUN/Creatinine Ratio 28, Glucose Level 146H, Calcium Level 8.8, Corrected Calcium 9.6, Total Bilirubin 0.5, Aspartate Amino Transf (AST/SGOT) 47H, Alanine Aminotransferase (ALT/SGPT) 32, Alkaline Phosphatase 71, Total Protein 6.9, Albumin 3.0L Microbiology 10/11/21 MRSA Screen - Final, Complete MRSA not isolated 10/11/21 Urine Culture - Final, Complete NO GROWTH 10/11/21 Blood Culture - Preliminary, Resulted Enterococcus faecalis Susceptibility To Follow Home Meds Active Reported Vitamin E (Vitamin E Acetate) 1,000 Unit Capsule 1,000 Unit PO DAILY Multi-Vitamin Daily (Multivitamin) 1 Each Tablet 1 Each PO DAILY Tylenol Extra Strength (Acetaminophen) 500 Mg Tablet 500 Mg PO Q6H PRN Atorvastatin Calcium 20 Mg Tablet 20 Mg PO DAILY Flomax (Tamsulosin HCl) 0.4 Mg Cap 0.4 Mg PO DAILY Lisinopril 5 Mg Tablet 5 Mg PO DAILY Pioglitazone HCl 45 Mg Tablet 45 Mg PO DAILY Assessment/Pt Instructions PCP in 1 week Discharge Planning: <30 minutes discharge planning Discharge Physical Examination Vital Signs Vital Signs Date Time Temp Pulse Resp B/P (MAP) Pulse Ox O2 Delivery O2 Flow Rate FiO2 10/14/21 08:32 Room Air 10/14/21 08:02 36.6 90 20 126/68 (87) 95 10/12/21 10:43 0.00 General Appearance: No Apparent Distress, WD/WN, Chronically ill Allergies: Coded Allergies: No Known Drug Allergies (Unverified , 09/22/18) Discharge Summary Date of Admission Oct 11, 2021 at 05:46 Date of Discharge Discharge Date: Oct 14, 2021 Admission Diagnosis Assessment: Sepsis Pneumonia Acute hypoxic respiratory failure Pulmonary fibrosis Hypertension Hyperlipidemia Recent 20 pound weight loss Plan: Antibiotics Gentle IV fluids PT and OT Oxygen Discharge Diagnosis Continue treatment Await blood culture sensitivity (1) Acute respiratory failure with hypoxemia Status: Acute (2) Pneumonia Status: Acute Qualifiers: Qualified Codes: J18.9 - Pneumonia, unspecified organism (3) History of pulmonary fibrosis Status: Acute (4) Sepsis Status: Acute Qualifiers: Qualified Codes: A41.9 - Sepsis, unspecified organism; R65.20 - Severe sepsis without septic shock; J96.01 - Acute respiratory failure with hypoxia NADIA WILSON DO Oct 14, 2021 09:53
[2021-10-14] MEDS ORDERED: TROUGH ORDER-PHARMACY XX NR (11:00)
[2021-10-14 11:30] VITALS: BP 126/68
--- NOTE | 2021-10-14 15:33 | Progress Note ---
YUMIKO FRIEDMAN 10/14/21 1533: Progress Note Patient is a 76 year old male that presented to the ER on 10/11 with complaints of shortness of breath, fever, malaise. Patient reports he had been sick for six weeks with two rounds of azithromycin. Patient was admitted with the diagnosis of sepsis, pneumonia, and acute hypoxic respiratory failure. Patient was started on cefepime for pneumonia. On 10/12, patient's blood cultures grew out enterococcus. Vancomycin was added to antibiotic regimen. Blood culture sent in for sensitivity testing. On 10/13, patient's clinical status had improved greatly, and he felt healthy enough to return home, but agreed to stay while waiting for blood culture results. On 10/14, patient was cleared for discharge, will be sent home on augmentin, singulair, and a prednisone taper (40mg, 30 mg, 20, mg, 10 mg, D/C). These will be sent to [facility] in [place]. Patient was instructed to return to an ER if any symptoms lingered or worsened and to take it easy for the first few days back home. KANDICE WILSON DO 10/15/21 0615: Supervisory-Addendum Brief Verification & Attestation Participated in pt care: history, MDM, physical Personally performed: exam, history, MDM, supervision of care Care discussed with: Medical Student Procedures: n/a Results interpretation: Verified all documentation Verification and Attestation of Medical Student E/M Service A medical student performed and documented this service in my presence. I reviewed and verified all information documented by the medical student and made modifications to such information, when appropriate. I personally performed the physical exam and medical decision making. Kandice Wilson Oct 15, 2021,06:15 YUMIKO FRIEDMAN Oct 14, 2021 15:33 KANDICE WILSON DO Oct 15, 2021 06:15
== END 2021-10-14 11:33 | disposition home or self-care (01) | DRG 871 ==
LOC: EDUNIT# 02:53 → ER 02:54 → EDLOC 05:46 → 4TH 05:46
PROVIDERS: ADMIT Internal Medicine; ATTEND Internal Medicine
DX: A41.81 Sepsis due to Enterococcus (principal); J96.01 Acute respiratory failure with hypoxia; J18.9 Pneumonia, unspecified organism; J44.1 Chronic obstructive pulmonary disease with (acute) exacerbation; A41.9 Sepsis, unspecified organism; R65.20 Severe sepsis without septic shock; J84.10 Pulmonary fibrosis, unspecified; I10 Essential (primary) hypertension; E78.5 Hyperlipidemia, unspecified; E11.9 Type 2 diabetes mellitus without complications; Z79.899 Other long term (current) drug therapy; Z79.84 Long term (current) use of oral hypoglycemic drugs
CPT/HCPCS: 36415; 71045; 71046; 71275; 80053; 81000; 82805; 82947; 83605; 83880; 84145; 84484; 85007; 85025; 85027; 85379; 85610; 85730; 86141; 86738; 87040; 87077; 87081; 87088; 87186; 87636; 93005; 94640; 94760; 94761

== ENCOUNTER 2021-11-17 13:01 | Emergency (ER) | payer MEDICARE ==
[~2021-11-17] VITALS: Ht 182.8 cm; Wt 96.6 kg
[~2021-11-17 13:01] MED LIST changes: +ACET-2267 PO; +AMOX-358 PO; +ATOR20TA66 PO; +MONT-40 PO; +MULT-974 PO; +PRED10TA22 PO; +VITA100035 PO
[2021-11-17] MEDS ORDERED: NAPROXEN 250 MG (NAPROSYN) TABLET PO ONE (13:30)
[2021-11-17] MEDS ORDERED: HYDROcodone/APAP 5 MG/325 MG (LORTAB) TAB PO ONE (13:30)
[2021-11-17] MEDS ORDERED: ACETAMINOPHEN 500 MG TAB (TYLENOL) PO ONE (13:30)
--- NOTE | 2021-11-17 13:32 | ED Hip Pain/Injury ---
General Chief Complaint: Hip/Pelvic Problems Stated Complaint: BACK PAIN Source: patient, family Exam Limitations: no limitations History of Present Illness Date Seen by Provider: Nov 17, 2021 Time Seen by Provider: 13:10 Initial Comments 76-year-old male coming in for right hip pain. Started roughly 5 to 6 days ago when he was getting out of a truck and feels like he tweaked his right hip. The pain is moderate, constant but worse with movement, aching. Feels it more towards the back of his hip. Denies any numbness or weakness associated with it. Has been able to ambulate with his cane but has pain when he puts full weight on his right leg. Has been taking ibuprofen 200 mg about once a day which helps with the pain, and he says is the only thing that allows him to sleep. Denies any bowel or bladder issue, midline back pain, recent falls, fever, or any other concerns. Allergies and Home Medications Allergies Coded Allergies: No Known Drug Allergies (Unverified , 09/22/18) Patient Home Medication List Home Medication List Reviewed: Yes Acetaminophen (Tylenol Extra Strength) 500 Mg Tablet, 500 MG PO Q6H PRN for PAIN-MILD (1-4), (Reported) Entered as Reported by: CYN RANKIN on 10/13/21 1056 Amoxicillin/Potassium Clav (Augmentin 875-125 Tablet) 1 Each Tablet, 1 EACH PO BID Prescribed by: NADIA WILSON on 10/14/21 0953 Atorvastatin Calcium (Atorvastatin Calcium) 20 Mg Tablet, 20 MG PO DAILY, (Reported) Entered as Reported by: CYN RANKIN on 10/13/21 1049 Lisinopril (Lisinopril) 5 Mg Tablet, 5 MG PO DAILY, (Reported) Entered as Reported by: GARRY MORRISON on 09/23/18 0214 Montelukast Sodium (Montelukast Sodium) 10 Mg Tablet, 10 MG PO HS Prescribed by: NADIA WILSON on 10/14/21 0953 Multivitamin (Multi-Vitamin Daily) 1 Each Tablet, 1 EACH PO DAILY, (Reported) Entered as Reported by: CYN RANKIN on 10/13/21 1057 Pioglitazone HCl (Pioglitazone HCl) 45 Mg Tablet, 45 MG PO DAILY, (Reported) Entered as Reported by: GARRY MORRISON on 09/23/18 0214 Prednisone (Prednisone) 10 Mg Tab.ds.pk, 10 MG PO DAILY Prescribed by: NADIA WILSON on 10/14/21 0953 Tamsulosin HCl (Flomax) 0.4 Mg Cap, 0.4 MG PO DAILY, (Reported) Entered as Reported by: GARRY MORRISON on 09/23/18 0214 Vitamin E Acetate (Vitamin E) 1,000 Unit Capsule, 1,000 UNIT PO DAILY, (Reported) Entered as Reported by: CYN RANKIN on 10/13/21 1058 Review of Systems Constitutional: No chills, No fever EENTM: No blurred vision Respiratory: No cough Cardiovascular: No chest pain Gastrointestinal: No abdominal pain Genitourinary: no symptoms reported Musculoskeletal: joint pain Skin: no symptoms reported Psychiatric/Neurological: No Symptoms Reported All Other Systems Reviewed Negative Unless Noted: Yes Past Sdfpttj-Veymnn-Zppthv Hx Patient Social History Tobacco Use?: No Use of E-Cig and/or Vaping dev: No Substance use?: No Alcohol Use?: Yes Alcohol Frequency: Rarely Pt feels they are or have been: No Seasonal Allergies Seasonal Allergies: Yes Past Medical History Surgeries: Yes Abdominal, Appendectomy, Orthopedic Respiratory: No Pulmonary Fibrosis Cardiac: Yes High Cholesterol, Hypertension Neurological: No Genitourinary: Yes Prostate Problems Gastrointestinal: No Musculoskeletal: No Endocrine: No HEENT: No Cancer: No Psychosocial: No Integumentary: No Blood Disorders: No Physical Exam Vital Signs Vital Signs - First Documented 11/17/21 13:15 Pulse 102 Resp 20 B/P (MAP) 164/71 (102) Pulse Ox 98 O2 Delivery Room Air Capillary Refill : Height, Weight, BMI Height: 6'0" Weight: 238lbs. 0oz. [id number]; 31.06 BMI Method:Stated General Appearance: No Apparent Distress, WD/WN HEENT: PERRL/EOMI, Normal ENT Inspection, Pharynx Normal Neck: Full Range of Motion, Normal Inspection, Non Tender, Supple Cardiovascular: Regular Rate, Rhythm, No Edema, Normal Peripheral Pulses Respiratory: Chest Non Tender, Lungs Clear, Normal Breath Sounds, No Accessory Muscle Use, No Respiratory Distress Gastrointestinal: Normal Bowel Sounds, Non Tender, Soft; No Distended, No Guarding Back: Normal Inspection, No CVA Tenderness, No Vertebral Tenderness Extremity: Normal Capillary Refill, Normal Inspection, Normal Range of Motion, No Calf Tenderness, No Pedal Edema, Other (Tender along his right buttocks mostly near his ischial tuberosity as well as his lateral hip. Some pain with logroll in the right hip, generally weak but 4+ out of 5 strength with hip flexion bilaterally, normal distal sensation and capillary refill, normal distal pulses, no low back pain on palpation) Neurologic/Psychiatric: Alert, No Motor/Sensory Deficits, Normal Mood/Affect Skin: Normal Color, Warm/Dry Lymphatic: No Adenopathy Progress/Results/Core Measures Results/Orders Lab Results Laboratory Tests Test 11/17/21 13:46 Range/Units Urine Color YELLOW Urine Clarity CLEAR Urine pH 6.0 5-9 Urine Specific [place] 1.015 L 1.016-1.022 Urine Protein NEGATIVE NEGATIVE Urine Glucose (UA) NEGATIVE NEGATIVE Urine Ketones NEGATIVE NEGATIVE Urine Nitrite NEGATIVE NEGATIVE Urine Bilirubin NEGATIVE NEGATIVE Urine Urobilinogen 2.0 < = 1.0 MG/DL Urine Leukocyte Esterase NEGATIVE NEGATIVE Urine RBC (Auto) NEGATIVE NEGATIVE Urine RBC RARE /HPF Urine WBC 0-2 /HPF Urine Squamous Epithelial Cells RARE /HPF Urine Crystals PRESENT H /LPF Urine Amorphous Sediment FEW EVELINA URATES H /LPF Urine Bacteria NEGATIVE /HPF Urine Casts NONE /LPF Urine Mucus MODERATE H /LPF Urine Culture Indicated NO My Orders Orders - EDU ARMENTA MD Pelvis With Right Hip 2-3views (11/17/21 13:28) Hydrocodone/Apap 5/325 Tablet (Lortab 5 (11/17/21 13:30) Acetaminophen Tablet (Tylenol Tablet) (11/17/21 13:30) Naproxen Tablet (Naprosyn Tablet) (11/17/21 13:30) Ua Culture If Indicated (11/17/21 13:32) Medications Given in ED Current Medications Medications Dose Ordered Sig/Angelica Route Start Time Stop Time Status Last Admin Dose Admin Acetaminophen 500 mg ONCE ONCE PO 11/17/21 13:30 11/17/21 13:31 DC 11/17/21 13:43 500 MG Acetaminophen/ Hydrocodone Bitart 1 ea ONCE ONCE PO 11/17/21 13:30 11/17/21 13:31 DC 11/17/21 13:43 1 EA Naproxen 250 mg ONCE ONCE PO 11/17/21 13:30 11/17/21 13:31 DC 11/17/21 13:44 250 MG Vital Signs/I&O 11/17/21 13:15 Pulse 102 Resp 20 B/P (MAP) 164/71 (102) Pulse Ox 98 O2 Delivery Room Air Progress Progress Note : Progress Note 76-year-old male with above history coming in due to right hip pain. Clinically he says he was stepping out of the car when he felt a strain in his hip and he has had pain since then. Likely is muscular strain based off of this. X-ray negative for any fracture, dislocation, or any other significant abnormality. Afterwards his walked up to me and requested a urinalysis for her own benefit. She says sometimes he has abnormal pains when he has a UTI. He was given ibuprofen, Tylenol, and hydrocodone for his pain which did improve. I believe overall he is stable for discharge with outpatient follow-up. He was sent home with strict return precautions. Departure Impression Primary Impression: Right hip pain Disposition: HOME, SELF-CARE Condition: Stable Departure-Patient Inst. Decision time for Depature: 14:15 Referrals: NO,LOCAL PHYSICIAN (PCP) Primary Care Physician OLLIE MCADAMS MD Patient Instructions: Hip Pain Add. Discharge Instructions: There is nothing broken in your hip or dislocated. You likely do have a small amount of arthritis, but I think you likely pulled a muscle when you are getting out of the car the other day and this will take some time to heal. Follow-up with Dr. Mcadams here in town if things not better in the next couple of days. I would prefer you take naproxen 250 mg 1-2 times a day instead of ibuprofen as it is slightly safer. The safest bet is to take Tylenol 1000 mg every 6 hours. Scripts Naproxen (Naproxen) 250 Mg Tablet 250 MG PO Q12H for 7 Days, #14 TAB Prov: EDU ARMENTA MD 11/17/21 Acetaminophen (Acetaminophen) 500 Mg Tablet 1000 MG PO Q6H for 14 Days, #112 TAB Prov: EDU ARMENTA MD 11/17/21 EDU ARMENTA MD Nov 17, 2021 13:32
[2021-11-17 13:53] LABS: BILIRUBIN,URINE NEGATIVE (NEGATIVE); CLARITY,URINE CLEAR; COLOR,URINE YELLOW; GLUCOSE, URINE (UA) NEGATIVE (NEGATIVE); KETONES,URINE NEGATIVE (NEGATIVE); LEUKOCYTE ESTERASE ,URINE NEGATIVE (NEGATIVE); NITRITE,URINE NEGATIVE (NEGATIVE); PROTEIN,URINE NEGATIVE (NEGATIVE)
--- NOTE | 2021-11-17 14:04 | Diagnostic Imaging Report ---
EXAMINATION: Right hip unilateral 2 or 3 views (w/pelvis when done). HISTORY: Pelvic and hip pain. COMPARISON: None available. FINDINGS: There is no evidence for an acute fracture or dislocation. The joint spaces are well maintained. There is no significant soft tissue swelling. IMPRESSION: No acute process. Dictated by: Dictated on workstation # [id number]
[2021-11-17 14:11] LABS: BACTERIA,URINE NEGATIVE /HPF; RBC,URINE RARE /HPF; SQUAMOUS EPITHELIAL CELL,UR RARE /HPF; WBC,URINE 0-2 /HPF
[2021-11-17 14:12] LABS: AMORPHOUS SEDIMENT,UR FEW AMOR URATES /LPF
[2021-11-17] MEDS ORDERED: NAPR-1088 PO (14:22)
[2021-11-17] MEDS ORDERED: ACET-93 PO (14:22)
[2021-11-17 15:00] VITALS: BP 155/72
== END 2021-11-17 15:00 | disposition home or self-care (01) ==
LOC: EDUNIT# 13:01 → ER 13:03
DX: M25.551 Pain in right hip (principal); I10 Essential (primary) hypertension; E78.00 Pure hypercholesterolemia, unspecified; Z79.899 Other long term (current) drug therapy; X50.1XXA Overexertion from prolonged static or awkward postures, initial encounter
CPT/HCPCS: 81000